=== PATIENT | female | born 1955 | race Caucasian/White ===

== ENCOUNTER 2024-08-12 07:58 | Outpatient (AMB) | payer OTHER, SELFPAY ==
--- OUTSIDE RECORDS SUMMARY | 2024-08-12 08:03 | XMS_ITS | Continuity of Care Document ---
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 She has a splint at home so volar splint is constructed in the cast room. She is provided an OT prescription to begin the rehab protocol. She will follow-up for this problem in 1 month for x-rays of the wrist and range of motion assessment. [email or web address] Not available 08/07/2024 10:59:47 Plan of Treatment Reminders Order Date Submit Date Provider Last Modified By Organization Details Last Modified Time Details Appointments RECHECK 15 2024 08:45A M Tiffany castañeda MD Not available Not available Not available Lab None recorde d. Referral occupat ional therapi st referra l - diagnos is: s/p left Distal radius fractur ecustom molded orthosi s: Possibl e custom molded volar wrist orthosi s if neededT reatmen t: AROM elbow, forearm , wrist and digits. May progres s to incorpo rate PROM and progres sive strengt hening after 6 weeks from injury/ surgery . 2024 025 [email or web address] Not available 08/07/2024 15:10:37 Procedures None recorde d. Surgeries None recorde d. Imaging XR, wrist, 3 or more view - CAST OFF FIRST post op visit 3 views left wrist rm 113 2024 025 [email or web address] [email or web address] [facility] Office, [address], [facility] [address], [place], [address], 08/07/2024 11:00:22 Medication Orders None recorde d. Patient TargetsNo targets recorded. Patient Instructions Encounter Date Encounter Id Patient Instructions Last Modified By Organization Details Last Modified Time 08/07/202420250225 cast removal* - cast off and xrays rm 113 left wrist everett 1 Not available 08/07/2024 11:00:22 application of splint, volar* - left removable volar splint rm 113 [email or web address] 1 Not available 08/07/2024 11:00:22 Reason for Referral Occupational Therapist Refer ral for Pain of left wrist diagnosis: s/p left Distal radius fracturecustom molded orthosis: Possible custom molded volar wrist orthosis if neededTreatment: AROM elbow, forearm, wrist and digits. May progress to incorporate PROM and progressive strengthening after 6 weeks from injury/surgery. Referring Physician: Tiffany Bateman, Orthopedic Surgery, Encounter Date: 08/07/2024 Results Created Date Observation Date Name Description Value Unit Range Abnormal Flag Note LastModifiedBy Organization Detail LastModifiedTime 07/13/20 24 07/13/2024 XR, wrist , 3 or more view [email or web address] ?Encry pted=s hAaTro YD8dLq bEUv6g %2BXZw aYqtaq 0bqfl% 2Fg9IQ a4ajBk vP9nXo QUaueC m3YtLR FvZlgJ JJ8mAn HZtai3 [id number] AC0Kqb niMV6C iKiQtr MwF INTERFACE [facility] [address] [facility] [address], [place], [address], 07/13/2024 12:14:18 07/13/20 24 07/13/2024 XR, wrist , 3 or more view [email or web address] ?Encry pted=s hAaTro YD8dLq bEUv6g %2BXZw aYqtaq 0bqfl% 2Fg9IQ a4ajBk vP9nXo QUaueC m3YtLR FvZlg [place] HZtai3 9t2584 AC0Kqb niMV6C iKiQtr MwF INTERFACE [facility] [address], [place], [address], 07/13/2024 12:14:21 08/07/19 25 08/07/2024 XR, wrist , 3 or more view [email or web address] ?Encry pted=s hAaTro YD8dLq bEUv6g %2BXZw aYqtaq 0bqfl% 2Fg9IQ a4ajBk vP9nXo QUaueC m3YtLR FvZl [facility] HZtai3 4i0686 AC0Kqb 3iGUKe hKiQtr MwF INTERFACE [facility] [address], [place], [address], 08/07/2024 10:08:50 08/07/19 25 08/07/2024 XR, wrist , 3 or more view [email or web address] ?Encry pted=s hAaTro YD8dLq bEUv6g %2BXZw aYqtaq 0bqfl% 2Fg9IQ a4ajBk vP9nXo QUaueC m3YtLR [facility] HZtai3 [id number] AC0Kqb 3iGUKe hKiQtr MwF INTERFACE [facility] [address], [place], [address], 08/07/2024 10:08:52 Result Notes None recorded. Problems Name Problem SNOMED Code Status Onset Date Resolution Date Notes Provider Name and Address Organization Details Recorded Time Pain in right hip joint 307211186185665 Active 2021 Status : 'A'; Not Available [facility] 4 11:44:05 Problem Notes None recorded. Procedures Surgical History Date Name Laterality Status Provider Name and Address Organization Details Recorded Time 4 OPEN REDUCTION INTERNAL FIXATION, DISTAL RADIUS (SURG) completed JUAN JOSÉ CHO [facility] 07/03/2024 12:39:33 4 Sports Knee 4&1 completed Santy Garcia MD [address] [facility] [address], [place], [address], [facility] 05/12/2024 11:01:09 Imaging Results None recorded. Procedure Notes None recorded. Medical Equipment None Reported. Allergies No known drug allergies Medications Name Sig Start Date Stop Date Status Note LastModified by Organization Details LastModified Time amoxicillin 500 mg capsule 4 pills 1 hour prior to procedure 05/12 completed Not Available Not Available Not Available alendronate 35 mg tablet Take 1 tablet every week by oral route. active Not Available Not Available No t Available levothyroxi ne 50 mcg tablet TAKE 1 TABLET BY MOUTH ONCE DAILY AND TAKE 2 TABS ON SUNDAYS active Not Available Not Available No t Available simvastatin 20 mg tablet TAKE 1 TABLET BY MOUTH NIGHTLY AT BEDTIME active Not Available Not Available No t Available clotrimazol e-betametha sone 1 %-0.05 % topical cream APPLY CREAM TOPICALLY ONCE OR TWICE DAILY TO AREA INVOLVED NEEDED FOR 2 WEEKS 06/29 completed Not Available Not Available Not Available sertraline 50 mg tablet TAKE 1 TABLET BY MOUTH ONCE DAILY active Not Available Not Available No t Available oxycodone 5 mg tablet Take 1 tablet every 6 hours by oral route as needed, for pain. active Not Available Not Available No t Available sertraline active Not Available Not Av ailable Not Available Vitamin C active Not Available Not Lisbeth ilable Not Available levothyroxi ne active Not Available Not Available Not Available simvastatin active Not Available Not A vailable Not Available Vitals Date Recorded Body height Body mass index (BMI) Body weight Provider Name and Address Organization Details Last Updated DateTime 08/07/2024 156.21 cm 26 kg/m2 89105.93 g Ani [place] [facility] 08/07/2024 09:59:39 Social History None recorded. Functional Status None recorded. Mental Status None recorded. Family History Nothing Reported. Medical History No medical history recorded. Gynecological HistoryNo gynecological history recorded. Obstetrics History GPAL:G 0 P 0 0 0 0 Past Encounters Encounter ID Performer Location Encounter Start Date Encounter Closed Date Diagnosis/Indication Diagnosis SNOMED-CT Code Diagnosis ICD10 Code Diagnosis Note [id number] ME[facility] [address] [place] [address] 07/13/2024 11:45:24 08/03/2024 16:03:37 Pain of left wrist 7594370007 82804 M25.270 [id number] MD KRISSY Teran [address] [place] [address] 08/07/2024 09:52:42 08/07/2024 11:00:22 Pain of left wrist 5244333184 70203 M25.532 Closed fra cture of distal end of radius 44786218 S52.572D Health Concerns Section Related Observation LastModified by Organization Detai ls LastModified Time None Recorded Concern Status LastModified by Organization Details LastModified Time None Recorded Payers Encounter Date Sequence Insurance Name Policy Number Policy Hayward Covered Member ID Hayward Member ID Guarantor Name 08/07/2024 1 [facility] (MEDICARE REPLACEMENT/A DVANTAGE - PPO) [id number] Karin Samuels [id number] Karin Samuels Notes Date Note Type Note Provider Name and Address Organization Details Recorded Time 08/07/2024 text/html DX: Status post open reduction and internal fixation Left distal radius fracture 07/02/2024 HPI: The patient is here for wound check and suture removal. The patient's pain is controlled. No numbness and tingling. No fevers or chills. The patient is taking vitamin C. patient is working on digital range of motion exercises. She has been in a cast since the most recent visit. Tiffany Bateman MD [address], [place], [address], [facility] 08/07/2024 11:00:19 OBGyn Episode No OBEpisode recorded.
--- NOTE | 2024-08-12 08:08 | A.OFFVIS_ITS ---
Vital Signs 08/12/24 08:12 Height 5 ft 1 in Weight 140 lb BMI 26.4 Intake Visit Reasons: Right knee pain and giving way Intake Note: Karin is a 68 year old female who presents with complaints of progressively worsening right knee pain and giving way. The patient describes her pain as sharp in nature. The patient states that she tripped and fell several months ago. She twisted her right knee at that time. She also suffered a left wrist fracture. She is currently healing after undergoing left wrist fracture surgery in [place]. Most of her knee pain is along the medial aspect of her knee. She has had a cortisone injection in the past which gave her no relief. She has also tried physical therapy exercises which aggravated her pain. She has failed the last 6 weeks of conservative treatment which has included Tylenol, anti- inflammatory medicines and physical therapy exercises. She states that her right knee will give out several times per day. Allergies No Known Allergies Allergy (Verified 08/12/24 08:13) Medication List - Last Reconciled 08/12/24 by Kenneth Lai MD alendronate 35 mg PO QWEEK levothyroxine mcg PO sertraline 50 mg PO DAILY simvastatin 20 mg PO BEDTIME [facility] Social History (Updated 08/12/24 @ 08:14 by CARLA Kaplan) Current occupational status: retired Current occupation: rt handed Physical Exam Vital Signs: BMI result Body Mass Index 26.4 Const Other: Well-nourished well-developed very friendly female awake alert and oriented x3 in no acute distress Extrem Other: Bilateral lower extremity examination shows good capillary refill, no skin lesions noted, normal sensation light touch Right knee examination shows a minimal effusion, minimal crepitus with range of motion, tenderness along her medial joint line, positive Janelle's test, no instability Results Reviewed Results Reviewed: Standing full weight-bearing x-rays of the patient's right knee show mild diffuse joint space narrowing, no acute bony abnormalities Assessment & Plan Assessment & Plan (1) Tear of medial meniscus of right knee: Code(s): S83.241A - Other tear of medial meniscus, current injury, right knee, initial encounter Category: Medical Plan Ms. Samuels presents with progressively worsening right knee pain and mechanical symptoms most likely due to a tear of her medial meniscus. Thus, I will send the patient for an MRI of her right knee for further evaluation. I will see her back once the MRI is completed to discuss the findings and treatment options. Feel free to call me at any time should questions regarding her orthopedic management arise. Thank you very much for asking me to see this very friendly patient. I spent 22 minutes in reviewing the patient's records and imaging studies, seeing the patient and documenting in the medical record. Orders: Orders XR knee RT 3V Today M25.561 - Pain in right knee Coding Level of Care Code New Pt Level 3 (18838) Complex EM visit Add On G2211 Diagnoses Tear of medial meniscus of right knee S83.241A
[2024-08-12 08:12] VITALS: BMI 26.4
== END 2024-08-12 08:22 | disposition home or self-care (01) ==
PROVIDERS: PCP Internal Medicine; Visit Provider Orthopaedic Surgery
DX: S83.241A Other tear of medial meniscus, current injury, right knee, initial encounter (principal)
CPT/HCPCS: 99203

== ENCOUNTER 2024-08-12 15:22 | Outpatient (REF) | payer MEDICARE, SELFPAY ==
--- NOTE | ~2024-08-12 | XR_ITS ---
CLINICAL HISTORY: M25.561 - Pain in right knee Right knee three views Comparison: None Findings: Severe medial compartment narrowing with mild hypertrophic changes. Mild degenerative changes in the lateral and patellofemoral compartments. No fracture or dislocation. Loss of the normal valgus angulation with Horacio in mild varus. Soft tissues intact. No joint effusion. 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 This document has been electronically signed by: Sohail Simms MD on 08/14/2024 04:59:36
--- OUTSIDE RECORDS SUMMARY | 2024-08-13 18:26 | XMS_ITS | Continuity of Care Document ---
Author Organization [place] - [facility], KRISSY [address] 1[address] Floor Address [address] [place] [address] Care Team Providers Care Mechanical Technical Service Specialist Name Role Phone CRISTAL CASTELAN Primary Care Provider [phone] Assessment Encounter Date Assessment Date Assessment LastModified [...] wrist rm 113 2024 025 kelsi [email or web address] [facility] Office, [address], [facility] [address], [place], [address], 08/07/2024 11:00:22 Medication Orders None recorde d. [...] a4ajBk vP9nXo QUaueC m3YtLR FvZlgJ JJ8mAn HZtai3 [id number] AC0Kqb niMV6C iKiQtr MwF INTERFACE [facility] Office [address] [facility] [address], [place], [address], 07/13/2024 12:14:18 07/13/20 24 07/13/2024 XR, wrist , 3 or more view [email or web address] ?Encry pted=s hAaTro YD8dLq bEUv6g %2BXZw aYqtaq 0bqfl% 2Fg9IQ a4ajBk vP9nXo QUaueC m3YtLR FvZlg J8[place] HZtai3 9w3921 AC0Kqb niMV6C iKiQtr MwF INTERFACE [facility] [address], [place], [address], 07/13/2024 12:14:21 08/07/19 25 08/07/2024 XR, wrist , 3 or more view [email or web address] ?Encry pted=s hAaTro YD8dLq bEUv6g %2BXZw aYqtaq 0bqfl% 2Fg9IQ a4ajBk vP9nXo QUaueC m3YtLR FvZl J8[facility] HZtai3 8v5871 AC0Kqb 3iGUKe hKiQtr MwF INTERFACE [facility] [address], [place], [address], 08/07/2024 10:08:50 08/07/19 25 08/07/2024 XR, wrist , 3 or more view [email or web address] ?Encry pted=s hAaTro YD8dLq bEUv6g %2BXZw aYqtaq 0bqfl% 2Fg9IQ a4ajBk vP9nXo QUaueC m3YtLR [facility]8[place] HZtai3 [id number] AC0Kqb 3iGUKe hKiQtr MwF INTERFACE [facility] [address] [facility] [address], [place], [address], 08/07/2024 10:08:52 Result Notes None recorded. Problems Name Problem SNOMED Code Status Onset Date Resolution Date Notes Provider Name and Address Organization Details Recorded Time Pain in right hip joint 351287012884856 Active 2021 Status : 'A'; Not Available [facility] 4 11:44:05 Problem Notes None recorded. Procedures Surgical History Date Name Laterality Status Provider Name and Address Organization Details Recorded Time 4 OPEN REDUCTION INTERNAL FIXATION, DISTAL RADIUS (SURG) completed JUAN JOSÉ CHO [facility] 07/03/2024 12:39:33 4 Sports Knee 4&1 completed Santy Garcia MD [address] [facility] [address], [place], [address], [facility] 05/12/2024 11:01:09 Imaging Results None recorded. [...] Updated DateTime 08/07/2024 156.21 cm 26 kg/m2 19060.93 g Ani [place] [facility] 08/07/2024 09:59:39 Social History None recorded. Functional Status None recorded. Mental Status None recorded. Family History Nothing Reported. Medical History No medical history recorded. Gynecological HistoryNo gynecological history recorded. Obstetrics History GPAL:G 0 P 0 0 0 0 Past Encounters Encounter ID Performer Location Encounter Start Date Encounter Closed Date Diagnosis/Indication Diagnosis SNOMED-CT Code Diagnosis ICD10 Code Diagnosis Note [id number] [facility] [address] [place] [address] 07/13/2024 11:45:24 08/03/2024 16:03:37 Pain of left wrist [id number] 97817 M25.068 [id number] MD KRISSY Teran 1[address] [place] [address] 08/07/2024 09:52:42 08/07/2024 11:00:22 Pain of left wrist 2041960208 21253 M25.532 Closed fra cture of distal end of radius 03979244 S52.572D Health Concerns Section Related Observation LastModified by Organization Detai ls LastModified Time None Recorded Concern Status LastModified by Organization Details LastModified Time None Recorded Payers Encounter Date Sequence Insurance Name Policy Number Policy Hayward Covered Member ID Hayward Member ID Guarantor Name 08/07/2024 1 [facility] (MEDICARE REPLACEMENT/A DVANTAGE - PPO) [id number] Karin Samuels [id number] Karin Samuels Notes Date Note Type Note [...] Bateman MD [address], [place], [address], [facility] 08/07/2024 11:00:19 OBGyn Episode No OBEpisode recorded.
== END 2024-08-12 15:23 | disposition home or self-care (01) ==
LOC: HO.HOSX 15:22
PROVIDERS: Visit Provider Orthopaedic Surgery
DX: M25.561 Pain in right knee (principal)
CPT/HCPCS: 73562; 99202

== ENCOUNTER 2024-08-22 10:00 | Outpatient (REF) | payer MEDICARE, SELFPAY ==
--- NOTE | ~2024-08-22 | MR_ITS ---
EXAMINATION: MRI RIGHT KNEE WITHOUT CONTRAST HISTORY: S83.241A - Other tear of medial meniscus, current injury, right knee COMPARISON: Correlation is made to plain films of the right knee dated 08/12/2024. TECHNIQUE: Coronal T1 and fat-suppressed proton density, sagittal proton density and fat-suppressed proton density, and axial fat suppressed T2 weighted MR images of the right knee were obtained. FINDINGS: Bone marrow: Bone marrow signal intensity is normal. Joint effusion: There is a small suprapatellar joint effusion. Ireland's cyst: There is no Ireland's cyst. Articular cartilage: There is moderate osteoarthritis of the medial and patellofemoral compartments with cartilage loss and osteophyte formation. Muscles: There is a 2.3 x 0.7 x 2.3 cm cystic focus in the popliteus muscle suggestive of a ganglion cyst. Anterior cruciate ligament: Intact Posterior cruciate ligament: Intact Medial collateral ligament: Intact Lateral collateral ligament: Intact Medial meniscus: There is a horizontally oriented linear focus of increased T2 signal intensity within the posterior horn of the medial meniscus. This contacts the inferior surface, consistent with a tear. Anterior horn of the medial meniscus is intact. Lateral meniscus: Intact Popliteus tendon: Intact Quadriceps tendon: Intact Patellar tendon: Intact Patellar retinacula: Intact MR/MR knee RT wo con IMPRESSION: 1. Moderate osteoarthritis of the medial and patellofemoral compartments. 2. Horizontal tear of the posterior horn of the medial meniscus. This may be degenerative in nature. 3. Probable 2.3 x 0.7 x 2.3 cm ganglion cyst of the popliteus muscle. Electronically signed by: Zaki Cerrato MD 08/24/2024 08:21 AM [facility]
--- OUTSIDE RECORDS SUMMARY | 2024-08-22 10:05 | XMS_ITS | Data Portability ---
Author Organization [place] - [facility], [facility] Address [address] [place] [address] Care Team Providers Care Geomorphology Teacher Name Role Phone CRISTAL CASTELAN Primary Care Provider Assessment Encounter Date Assessment Date Assessment LastModified by Organization Details LastModified Time 05/12/2024 05/12/2024 Chief complaint: Right knee pain. History of present illness: The patient is a 68-year-old female presenting with a chief complaint of right knee pain. She has had pain for 2 months. The patient currently has 7 out of 10 pain. Currently the patient uses no assistive devices when walking. The patient has tried rest and activity modification but continues to have pain. Past medical history: Past medical history reviewed from the patient's intake sheet. Pertinent positives: none Past surgical history: Past surgical history reviewed from the patient's intake sheet. Pertinent positives: right total hip arthroplasty Allergies: Allergies reviewed from the patient's intake sheet. Pertinent positives: none Medications: Medications reviewed from the patient's intake sheet. Pertinent positives: none Social history: Social history reviewed from the patient's intake sheet. Pertinent positives: none Physical Examination: The patient is in no acute distress. She is alert and oriented x3. She has nonlabored breathing. Her hearing is intact to spoken word. Her extra-ocular motion is intact. Her BMI is 26. Right lower extremity - Alignment: neutral Effusion: mild Knee range of motion: Negative 10-120 Varus/valgus stress testing: moderate laxity Crepitus: slight Skin is intact without erythema, induration, or ecchymosis. The patient has full painless range of motion at the ipsilateral hip. Sensation is intact to light touch over the dorsum of the foot, in the first webspace, and over the plantar aspect of the foot. The patient has 5/5 strength with plantarflexion of the ankle, dorsiflexion of the ankle, plantarflexion of the great toe, and dorsiflexion of the great toe. The foot is warm and well-perfused with brisk capillary refill. There is a 2+ dorsalis pedis pulse. Radiographs: 4 views of the right knee including bilateral knee AP, bilateral knee Sandoval, right knee lateral, and bilateral knee merchant views were obtained and evaluated in the office today. X-rays demonstrate that the patient has mild osteoarthritis of the right knee with some subchondral sclerosis and osteophyte formation in the medial compartment but without significant joint space narrowing. There is no evidence of fracture. Injection: The patient was given a corticosteroid injection in the office today for treatment of right knee pain. Risks of the injection, including but not limited to infection were discussed. Despite the risks, the patient wished to proceed. The patient had an injection containing 4 cc of 1% lidocaine and 1 cc of Kenalog injected into the right knee via an anterolateral approach under sterile technique. The patient tolerated this injection well. There were no complications. Following the injection the patient noted a decrease in pain. The patient was instructed to contact the office if the patient had any reaction at the injection site or any concerns. The patient was also instructed to keep track of how much pain relief the injection provided and how long the injection was effective. Assessment and plan: The patient is a 68-year-old female presenting with a chief complaint of right knee pain. She demonstrates mild osteoarthritis of the right knee on her radiographs. She was given a corticosteroid injection in the office today. She can follow up with me as-needed for her right knee pain. carol Not available 05/12/2024 11:02:58 06/29/2024 06/29/2024 I am seeing the patient today under the supervision of Dr. Bateman who was available but who did not see the patient. HPI: 68-year-old female presents today after a fall. She is [place] cruise ship fell onto her left nondominant hand and wrist. Full pain, swelling, deformity. Had a splint applied and was referred for further evaluation and treatment. Past family, medical, social history and review of systems has been reviewed, updated and is located in the patient? s chart. Examination: the patient is alert and cooperative in no acute distress. Afebrile, vital signs stable. There is poorly applied splint noted. Digits encapsulated in the splint. This was removed. There is full digital motion. There is ecchymosis about the hand and wrist. There is limited range of motion due to pain. Circulation and sensation intact. X-rays ordered, obtained and reviewed at [facility] 3 views of the left wrist ordered and interpreted today demonstrate a displaced intra-articular fracture of the left distal radius. There is shortening. There is a split fragment extending into the articular surface. Impression: Displaced left distal radius fracture Plan:. I recommended and we will arrange for ORIF. Patient placed in a new sugar tong splint. The interim. Not available 06/29/2024 09:59:22 08/07/2024 08/07/2024 Assessment: Status post ORIF left [...] Organization Details Last Modified Time Details Appointments RECHEC K 15 2024 08:45A M Tiffany castañeda MD Not available Not available Not available Lab None record ed. Referral occupa tional therap ist referr al - diagno sis: s/p left Distal radius fractu recust om molded orthos is: Possib le custom molded volar wrist orthos is if needed Treatm ent: AROM elbow, forear m, wrist and digits . May progre ss to incorp orate PROM and progre ssive streng thenin g after 6 weeks from injury /surge ry. 2024 025 [email or web address] Not available 08/20/2024 14:08:10 Procedures None record ed. Surgeries None record ed. Imaging XR, knee, 4 or more view - 205 rt 4v 2023 024 [email or web address] [facility], [address], [place], [address], 06/02/2024 15:15:46 XR, wrist, 3 or more view - RM 120 3V IN SPLINT 2023 024 [email or web address] [facility], [address], [address], [place], [address], 06/29/2024 11:46:09 XR, wrist, 3 or more view - post op visit 3 views left wrist rm 4 2023 024 [email or web address] [facility], [address], [place], [address], 07/13/2024 14:15:13 XR, wrist, 3 or more view - CAST OFF FIRST post op visit 3 views left wrist rm 113 2024 025 [email or web address] [facility], [address], [place], [address], 08/20/2024 14:08:10 Medication Orders None record ed. Patient TargetsNo targets recorded. Patient Instructions Encounter Date Encounter Id Patient Instructions Last Modified By Organization Details Last Modified Time 06/29/[id number] application of splint, short arm* - RM 120 SUGAR TONG SPLINT REMOVBLE Not available 06/29/2024 11:46:09 07/13/[id number] application of cast, short arm cast* - left short arm cast rm 4 [email or web address] Not available 07/13/2024 12:41:33 08/07/2024 [id number] cast removal* - cast off and xrays rm 113 left wrist [email or web address] Not available 08/07/2024 11:00:22 application of splint, volar* - left removable volar splint rm 113 [email or web address] 1 Not available 08/07/2024 11:00:22 Reason for [...] Abnormal Flag Note LastModifiedBy Organization Detail LastModifiedTime 05/12/20 24 05/12/2024 XR, knee, 4 or more view [email or web address] ?Encry pted=s hAaTro YD8dLq bEUv6g %2BXZw aYqtaq 0bqfl% 2Fg9IQ a4ajBk vP9nXo QUaueC m3YtLR FvZl JJ8mAn HZtai3 2f8818 AC0Kqa 3SBVKa kKiQtr MwF INTERFACE [facility] [address], [place], [address], 05/12/2024 10:20:46 05/12/20 24 05/12/2024 XR, knee, 4 or more view [email or web address] ?Encry pted=s hAaTro YD8dLq bEUv6g %2BXZw aYqtaq 0bqfl% 2Fg9IQ a4ajBk vP9nXo QUaueC m3YtLR Zl [facility] 7h8437 AC0Kqa 3SBVKa kKiQtr MwF INTERFACE [facility] [address], [place], [address], 05/12/2024 10:20:48 06/29/20 24 06/29/2024 XR, wrist , 3 or more view [email or web address]:/ [email or web address] ?Encry pted=s hAaTro YD8dLq bEUv6g %2BXZw aYqtaq 0bqfl% 2Fg9IQ a4ajBk vP9nXo QUaueC m3YtLR FvZl JJ8mAn HZtai3 3q7406 AC0Kqa XSGUqa iKiQtr MwF INTERFACE [facility] [address], [place], [address], 06/29/2024 09:22:15 06/29/20 24 06/29/2024 XR, wrist , 3 or more view [email or web address]:/ [email or web address] ?Encry pted=s hAaTro YD8dLq bEUv6g %2BXZw aYqtaq 0bqfl% 2Fg9IQ a4ajBk vP9nXo QUaueC m3YtLR FvZl JJ8Porter HZtai3 4g1771 AC0Kqa XSGUqa iKiQtr MwF INTERFACE [facility] [address] [facility] [address], [place], [address], 06/29/2024 09:22:17 07/13/20 24 07/13/2024 XR, wrist , 3 or more view [email or web address]:/ [email or web address] ?Encry pted=s hAaTro YD8dLq bEUv6g %2BXZw aYqtaq 0bqfl% 2Fg9IQ a4ajBk vP9nXo QUaueC m3YtLR FvZl JJ8mAn HZtai3 8f9277 AC0Kqb niMV6C iKiQtr MwF INTERFACE [facility] [address] [facility] [address], [place], [address], 07/13/2024 12:14:18 07/13/20 24 07/13/2024 XR, wrist , 3 or more view [email or web address]:/ [email or web address] ?Encry pted=s hAaTro YD8dLq bEUv6g %2BXZw aYqtaq 0bqfl% 2Fg9IQ a4ajBk vP9nXo QUaueC m3YtLR FvZlJ JJ8mAn HZtai3 0b7221 AC0Kqb niMV6C iKiQtr MwF INTERFACE [facility] [address], [place], [address], 07/13/2024 12:14:21 08/07/19 25 08/07/2024 XR, wrist , 3 or more view [email or web address]:/ [email or web address] ?Encry pted=s hAaTro YD8dLq bEUv6g %2BXZw aYqtaq 0bqfl% 2Fg9IQ a4ajBk vP9nXo QUaueC m3YtLR FvZlgJ JJ8mAn HZtai3 0v0862 AC0Kqb 3iGUKe hKiQtr MwF INTERFACE [facility] [address], [place], [address], 08/07/2024 10:08:50 08/07/19 25 08/07/2024 XR, wrist , 3 or more view [email or web address] ?Encry pted=s hAaTro YD8dLq bEUv6g %2BXZw aYqtaq 0bqfl% 2Fg9IQ a4ajBk vP9nXo QUaueC m3YtLR FvZlgJ JJ8mAn HZtai3 5e7520 AC0Kqb 3iGUKe hKiQtr MwF INTERFACE [facility] [address], [place], [address], 08/07/2024 10:08:52 Result Notes None recorded. Problems Name Problem SNOMED Code Status Onset Date Resolution Date Notes Provider Name and Address Organization Details Recorded Time Pain in right hip joint 298684205422200 Active 2021 Status : 'A'; Not Available [facility] 11:[facility]05 Problem Notes None recorded. Procedures Surgical History Date Name Laterality Status Provider Name and Address Organization Details Recorded Time 4 OPEN REDUCTION INTERNAL FIXATION, DISTAL RADIUS (SURG) completed JUAN JOSÉ CHO [place] - [facility] 07/03/2024 12:39:33 4 Sports Knee 4&1 completed Santy Garcia MD [address], [place], [address], [facility] - [facility] 05/12/2024 11:01:09 Imaging Results Imaging Date Name Status LastModified by Organiz ation Details LastModified Time 05/12/2024 XR, knee, 4 or more view completed INTERFACE [facility] [address], [place], [address], 05/12/2024 10:20:46 05/12/2024 XR, knee, 4 or more view completed INTER[facility] [address], [place], [address], 05/12/2024 10:20:48 06/29/2024 XR, wrist, 3 or more view completed INTERFACE [facility] [address], [place], [address], 06/29/2024 09:22:15 06/29/2024 XR, wrist, 3 or more view completed [facility] [address], [place], [address], 06/29/2024 09:22:17 07/13/2024 XR, wrist, 3 or more view completed INTERFACE [facility] [address], [place], [address], 07/13/2024 12:14:18 07/13/2024 XR, wrist, 3 or more view completed INTERFACE [facility] [address], [place], [address], 07/13/2024 12:14:21 08/07/2024 XR, wrist, 3 or more view completed INTERFACE [facility] [address], [place], [address], 08/07/2024 10:08:50 08/07/2024 XR, wrist, 3 or more view completed INTERFACE [facility] [address], [place], [address], 08/07/2024 10:08:52 Procedure Notes None recorded. Medical Equipment None [...] Not Available Vitals Date Recorded Body height Provider Name an d Address Organization Details Last Updated DateTime 05/12/2024 156.21 cm JUDY Moreno [facility] 05/12/2024 10:04:47 Date Recorded Body mass index (BMI) Body weight Provider Name and Address Organization Details Last Updated DateTime 05/12/2024 26 kg/m2 96551.93 g JUDY Moreno [facility] 05/12/2024 10:04:50 Date Recorded Body height Provider Name an d Address Organization Details Last Updated DateTime 06/29/2024 156.21 cm ZAKIYA Moreno [facility] 06/29/2024 09:13:19 Date Recorded Body mass index (BMI) Body weight Provider Name and Address Organization Details Last Updated DateTime 06/29/2024 26 kg/m2 06302.93 g ZAKIYA Nguyen [facility] 06/29/2024 09:13:24 Date Recorded Body height Provider Name an d Address Organization Details Last Updated DateTime 07/13/2024 156.21 cm Ani [facility] 07/13/2024 12:19:57 Date Recorded Body mass index (BMI) Body weight Provider Name and Address Organization Details Last Updated DateTime 07/13/2024 26 kg/m2 26880.93 g Ani [facility] 07/13/2024 12:20:02 Date Recorded Body height Provider Name an d Address Organization Details Last Updated DateTime 08/07/2024 156.21 cm Ani [facility] 08/07/2024 09:59:31 Date Recorded Body mass index (BMI) Body weight Provider Name and Address Organization Details Last Updated DateTime 08/07/2024 26 kg/m2 97133.93 g Ani [facility] 08/07/2024 09:59:39 Social History None recorded. Functional Status None recorded. Mental Status None recorded. Family History Nothing Reported. Medical History No medical history recorded. Gynecological HistoryNo gynecological history recorded. Obstetrics History GPAL:G 0 P 0 0 0 0 Past Encounters Encounter ID Performer Location Encounter Start Date Encounter Closed Date Diagnosis/Indication Diagnosis SNOMED-CT Code Diagnosis ICD10 Code Diagnosis Note [id number] MD Priyanka Sutton [address] [place] [address] 05/12/2024 09:46:21 06/02/2024 15:15:46 Pain of right knee joint 7115349463 71013 M25.561 Osteoarthr itis of right knee joint 6902879214 40043 M17.11 [id number] MELLY Chand [address] [place] [address] 06/29/2024 09:01:42 07/17/2024 10:36:02 Pain of left wrist 2471721934 17615 M25.532 Closed fra cture of distal end of radius 99417446 S52.572A [id number] MELLY [facility] [address] [place] [address] 07/13/2024 11:45:24 08/03/2024 16:03:37 Pain of left wrist 4441526478 71650 M25.554 [id number] MD KRISSY Teran [address] [place] [address] 08/07/2024 09:52:42 08/20/2024 14:08:10 Pain of left wrist 3024446356 12186 M25.532 Closed fra cture of distal end of radius 37461380 S52.572D Health Concerns Section Related Observation LastModified by Organization Detai ls LastModified Time None Recorded Concern Status LastModified by Organization Details LastModified Time None Recorded Advance Directives Directive None Recorded Payers Encounter Date Sequence Insurance Name Policy Number Policy Hayward Covered Member ID Hayward Member ID Guarantor Name 05/12/2024 1 [facility] (MEDICARE REPLACEMENT/A DVANTAGE - PPO) [id number] Karin J Samuels [id number] Karin J Samuels 06/29/2024 1 [facility] (MEDICARE REPLACEMENT/A DVANTAGE - PPO) [id number] Karin J Samuels [id number] Karin J Samuels 07/13/2024 1 [facility] (MEDICARE REPLACEMENT/A DVANTAGE - PPO) [id number] Karin J Samuels [id number] Karin J Samuels 08/07/2024 1 [facility] (MEDICARE REPLACEMENT/A DVANTAGE - PPO) [id number] Karin J Samuels [id number] Karin J Samuels Notes Date Note Type Note Provider Name and Address Organization Details Recorded Time 07/13/2024 text/html I am seeing the patient today under the supervision of dr bateman who was available but who did not see the patient. DX: Status post open reduction and internal fixation Left distal radius fracture 07/02/2024 HPI: The patient is here for wound check and suture removal. The patient's pain is controlled. No numbness and tingling. No fevers or chills. The patient is taking vitamin C. patient is working on digital range of motion exercises. Past family, medical, social history and review of systems has been reviewed, updated and is located in the patient? s chart. Examination:No acute distress. Non-antalgic gait. Vital signs per nursing intake sheet. Physical examination of the left wrist reveals swelling. There is also swelling of the hand and digits. Volar incision is healed. Subcuticular tail excised. Limited wrist and digital range of motion. Sensation intact all nerve distribution. 1+ capillary refill, 2+ radial pulse. X-rays ordered, obtained and reviewed at [facility] 3 views of the left wrist reveal a plate overlying the distal radius fracture. distal radius fracture is aligned. No backing hardware. Impression/plan: The findings and situation discussed with the patient. She was placed in a short arm cast. She will elevate and ice. She will work on digital range of motion exercises. She will follow-up with Dr. Hurtado in 2 to 3 weeks for cast removal and 2 views of the left wrist Josh Boudreaux PA-C [address] [facility] [address], [place], [address], [facility] 07/13/2024 12:22:25 08/07/2024 text/html DX: Status post open reduction [...] most recent visit. Tiffany Bateman MD [address] [facility] [address], [place], [address], [facility] 08/07/2024 11:00:19 OBGyn Episode No OBEpisode recorded.
== END 2024-08-22 10:01 | disposition home or self-care (01) ==
LOC: HO.MRI 10:00
PROVIDERS: PCP Internal Medicine; Visit Provider Orthopaedic Surgery
DX: S83.241A Other tear of medial meniscus, current injury, right knee, initial encounter (principal)
CPT/HCPCS: 73721

== ENCOUNTER → 2024-08-22 10:07 | Outpatient (BNV) | payer MEDICARE, SELFPAY | PROVIDERS: PCP Internal Medicine; Visit Provider Radiology Diagnostic Radiology | DX: S83.241A Other tear of medial meniscus, current injury, right knee, initial encounter (principal) | CPT/HCPCS: 73721 ==

== ENCOUNTER 2024-09-01 08:39 | Outpatient (AMB) | payer MEDICARE, SELFPAY ==
[2024-09-01 08:44] VITALS: BMI 26.4
--- NOTE | 2024-09-01 08:44 | MHC.OFFVIS ---
Vital Signs 09/01/24 08:44 Height 5 ft 1 in Weight 140 lb BMI 26.4 Intake Visit Reasons: OV- Right knee MRI review Intake Note: Karin is a 68 year old female who presents today for a right knee MRI review. The patient states that her right knee discomfort has improved somewhat since her last visit. She denies any locking or giving way. She is due to start hand therapy after suffering a left wrist fracture. Allergies No Known Allergies Allergy (Verified 09/01/24 08:46) Medication List - Last Reconciled 09/01/24 by Kenneth Lai MD alendronate 35 mg PO QWEEK levothyroxine mcg PO sertraline 50 mg PO DAILY simvastatin 20 mg PO BEDTIME PFS Social History (Updated 08/12/24 @ 08:14 by CARLA Kaplan) Current occupational status: retired Current occupation: rt handed Physical Exam Vital Signs: BMI result Body Mass Index 26.4 Const Other: Well-nourished well-developed very friendly female awake alert and oriented x3 in no acute distress Extrem Other: Bilateral lower extremity examination shows good capillary refill, no skin lesions noted, normal sensation light touch Right knee examination shows a minimal effusion, minimal crepitus with range of motion, positive Janelle's test, tenderness along her medial joint line, no instability Results Reviewed Results Reviewed: MRI of the patient's right knee shows mild diffuse degenerative changes as well as a tear of the medial meniscus Assessment & Plan Assessment & Plan (1) Tear of medial meniscus of right knee: Code(s): S83.241A - Other tear of medial meniscus, current injury, right knee, initial encounter Category: Medical Plan Ms. Samuels presents with intermittent right knee discomfort due to a medial meniscus tear. I had a lengthy discussion with the patient regarding the treatment options. At this point the patient's symptoms are tolerable to her. She will continue with her activity modifications. She will follow up with me on an as-needed basis should her symptoms worsen in any way. Feel free to call me at any time should questions regarding her orthopedic management arise. I spent 20 minutes in reviewing the patient's records and imaging studies, seeing the patient and documenting in the medical record. Coding Level of Care Code Est Pt Level 3 (65518) Complex EM visit Add On G2211 Diagnoses Tear of medial meniscus of right knee S83.241A
--- OUTSIDE RECORDS SUMMARY | 2024-09-01 08:57 | XMS_ITS | Continuity of Care Document ---
Author Organization [place] [facility] 1st Floor Address [address] [place] [address] Care Team Providers Care Oil House Attendant Name Role Phone CRISTAL CASTELAN Primary Care [...] ed. Surgeries None record ed. Imaging XR, wrist, 3 or more view - CAST OFF FIRST post op visit 3 views left wrist rm 113 2024 025 rmessenger [facility] Office, [address], [place], [address], 08/20/2024 14:08:10 Medication Orders None record ed. Patient TargetsNo targets recorded. Patient Instructions Encounter Date Encounter Id Patient Instructions Last Modified By Organization Details Last Modified Time 08/07/202420250225 cast removal* - cast off and xrays rm 113 left wrist [email or web address] 1 Not available 08/07/2024 11:00:22 application of [...] , 3 or more view [email or web address] ?Encry pted=s hAaTro YD8dLq bEUv6g %2BXZw aYqtaq 0bqfl% 2Fg9IQ a4ajBk vP9nXo QUaueC m3YtLR FvZlgJ JJ8mAn HZtai3 8x7303 AC0Kqb niMV6C iKiQtr MwF INTERFACE [facility] Office [address], [place], [address], 07/13/2024 12:14:18 07/13/20 24 07/13/2024 XR, wrist , 3 or more view [email or web address]:/ [email or web address] ?Encry pted=s hAaTro YD8dLq bEUv6g %2BXZw aYqtaq 0bqfl% 2Fg9IQ a4ajBk vP9nXo QUaueC m3YtLR FvZlgJ JJ8mAn HZtai3 4p0920 AC0Kqb niMV6C iKiQtr MwF INTERFACE [facility] [address], [place], [address], 07/13/2024 12:14:21 08/07/19 25 08/07/2024 XR, wrist , 3 or more view [email or web address] ?Encry pted=s hAaTro YD8dLq bEUv6g %2BXZw aYqtaq 0bqfl% 2Fg9IQ a4ajBk vP9nXo QUaueC m3YtLR FvZlgJ JJ8mAn HZtai3 7z2278 AC0Kqb 3iGUKe hKiQtr MwF INTERFACE [facility] [address], [place], [address], 08/07/2024 10:08:50 08/07/19 25 08/07/2024 XR, wrist , 3 or more view [email or web address] ?Encry pted=s Briceo YD8dLq bEUv6g %2BXZw aYqtaq 0bqfl% 2Fg9IQ a4ajBk vP9nXo QUaueC m3YtLR FvZlg JJ8mAn HZtai3 3i5788 AC0Kqb 3iGUKe hKiQtr MwF INTERFACE [facility] [address], [place], [address], 08/07/2024 10:08:52 Result Notes None recorded. Problems Name Problem SNOMED Code Status Onset Date Resolution Date Notes Provider Name and Address Organization Details Recorded Time Pain in right hip joint 635139137638208 Active 2021 Status : 'A'; Not Available [facility] 4 11:44:05 Problem Notes None recorded. Procedures Surgical History Date Name Laterality Status Provider Name and Address Organization Details Recorded Time 4 OPEN REDUCTION INTERNAL FIXATION, DISTAL RADIUS (SURG) completed JUAN JOSÉ CHO [facility] 07/03/2024 12:39:33 4 Sports Knee 4&1 completed Santy Garcia MD [address] [facility] [address], [place], [address], [facility] 05/12/2024 11:01:09 Imaging Results None recorded. [...] Updated DateTime 08/07/2024 156.21 cm 26 kg/m2 71296.93 g Ani [facility] 08/07/2024 09:59:39 Social History None recorded. Functional Status None recorded. Mental Status None recorded. Family History Nothing Reported. Medical History No medical history recorded. Gynecological HistoryNo gynecological history recorded. Obstetrics History GPAL:G 0 P 0 0 0 0 Past Encounters Encounter ID Performer Location Encounter Start Date Encounter Closed Date Diagnosis/Indication Diagnosis SNOMED-CT Code Diagnosis ICD10 Code Diagnosis Note [id number] [facility] [address] [place] [address] 07/13/2024 11:45:24 08/03/2024 16:03:37 Pain of left wrist 5298741995 52163 M25.894 [id number] MD KRIS[facility] [address] [place] [address] 08/07/2024 09:52:42 08/20/2024 14:08:10 Pain of left wrist 8965591929 38744 M25.532 Closed fra cture of distal end of radius 40712054 S52.572D Health Concerns Section Related Observation LastModified by Organization Detai ls LastModified Time None Recorded Concern Status LastModified by Organization Details LastModified Time None Recorded Payers Encounter Date Sequence Insurance Name Policy Number Policy Hayward Covered Member ID Hayward Member ID Guarantor Name 08/07/2024 1 [facility] (MEDICARE REPLACEMENT/A DVANTAGE - PPO) [id number] Karin Samuels [id number] Karin Samuels Notes Date Note Type Note [...] Bateman MD [address], [place], [address], [facility] 08/07/2024 11:00:19 OBGyn Episode No OBEpisode recorded.
== END 2024-09-01 08:59 | disposition home or self-care (01) ==
PROVIDERS: PCP Internal Medicine; Visit Provider Orthopaedic Surgery
DX: S83.241A Other tear of medial meniscus, current injury, right knee, initial encounter (principal)
CPT/HCPCS: 99213

== ENCOUNTER → 2024-09-01 08:39 | Outpatient (BNVA) | payer MEDICARE, SELFPAY | PROVIDERS: PCP Internal Medicine; Visit Provider Orthopaedic Surgery | DX: S83.241A Other tear of medial meniscus, current injury, right knee, initial encounter (principal); X58.XXXA Exposure to other specified factors, initial encounter; Y93.9 Activity, unspecified; Y92.9 Unspecified place or not applicable; Y99.9 Unspecified external cause status | CPT/HCPCS: 99212 ==

== ENCOUNTER 2025-03-23 11:02 | Outpatient (AMB) | payer MEDICARE, SELFPAY ==
--- NOTE | 2025-03-23 11:26 | MHC.OFFVIS ---
Vital Signs 03/23/25 11:30 Height 5 ft 1 in Weight 140 lb BMI 26.4 Intake Visit Reasons: OV- Right knee Pain Follow up Intake Note: Karin is a 89 year old female who presents with complaints of progressively worsening right knee pain and giving way. The patient describes her pain as sharp in nature. The patient states that she tripped and fell several months ago. She twisted her right knee at that time. Most of her knee pain is along the medial aspect of her knee. She has had a cortisone injection in the past which gave her no relief. She has also tried physical therapy exercises which aggravated her pain. She has failed the last 6 weeks of conservative treatment which has included Tylenol, anti-inflammatory medicines and physical therapy exercises. She states that her right knee will give out several times per day. Allergies No Known Allergies Allergy (Verified 03/23/25 11:31) Medication List - Last Reconciled 03/23/25 by Kenneth Lai MD alendronate 35 mg PO QWEEK levothyroxine mcg PO sertraline 50 mg PO DAILY simvastatin 20 mg PO BEDTIME [facility] Social History Current occupational status: retired Current occupation: rt handed Physical Exam Vital Signs: BMI result Body Mass Index 26.4 Const Other: Well-nourished well-developed very friendly female awake alert and oriented x3 in no acute distress Extrem Other: Right knee examination shows a minimal effusion, mild crepitus with range of motion, tenderness along her medial joint line, positive Janelle's test, no instability Results Reviewed Results Reviewed: Standing full weight-bearing x-rays of the patient's right knee show mild diffuse joint space narrowing, no acute bony abnormalities MRI of the patient's right knee shows mild diffuse degenerative changes as well as a tear of the medial meniscus Assessment & Plan Assessment & Plan (1) Tear of medial meniscus of right knee: Code(s): S83.241A - Other tear of medial meniscus, current injury, right knee, initial encounter Category: Medical Plan Ms. Samuels presents with progressively worsening right knee pain and mechanical symptoms due to early degenerative joint disease as well as a medial meniscus tear. I had a lengthy discussion with the patient regarding the treatment options. At this point she has failed continued non operative treatments. The risks and benefits of right knee arthroscopic surgery were discussed at length with the patient. The patient wishes to proceed. Surgery will involve right knee arthroscopic partial medial meniscectomy. The patient does understand that she may not get 100% relief of her symptoms depending on the severity of her degenerative changes. She will follow-up as instructed. Feel free to call me at any time should questions regarding her orthopedic management arise. I spent 20 minutes in reviewing the patient's records and imaging studies, seeing the patient and documenting in the medical record. Coding Level of Care Code Est Pt Level 3 (09233) Complex EM visit Add On G2211 Diagnoses Tear of medial meniscus of right knee S83.241A
[2025-03-23 11:30] VITALS: BMI 26.4
--- OUTSIDE RECORDS SUMMARY | 2025-03-23 12:40 | XMS_ITS | Encounter Summary ---
Author Organization [facility] Address [address] [place] [address] Care Team Providers Care Spd Manager Name Role Phone Jose Chatman MD Primary Care Provider [phone] Encounter Details Date Type Department Care Team (Latest Contact Info) Description 10/16/[address] [facility] [address] [place] [phone] Allen Chandra MD [address] [phone] Encounter for gynecological examination (general) (routine) without abnormal findings Social History Tobacco Use Types Packs/Day Years Used Date Smoking Tobacco: Never Smokeless Tobacco: Never Comments Unknown Sex and Gender Information Value Date Recorded Sex Assigned at Not on file Legal Sex Female 5:11 PM EST Gender Identity Not on file Sexual Orientation Not on file documented as of this encounter Plan of Treatment Not on file documented as of this encounter Procedures Procedure Name Priority Date/Time Associated Diagnosis Comments PAP SMEAR Routine 10/15/2024 12:00 AM EDT Encounter for gynecological examination (general) (routine) without abnormal findings documented in this encounter Results * Pap smear (10/15/2024 12:00 AM EDT) Interpretation Negative for intraepithelial lesion or malignancy 10/19/2024 3:57 PM EDT [facility] General Categorization Negative 10/19/2024 3:57 PM EDT [facility] Other Findings Atrophy 10/19/2024 3:57 PM EDT [facility] Specimen Adequacy Satisfactory for evaluation 10/19/2024 3:57 PM EDT [facility] Pap Methodology Liquid Based Pap Test 10/19/2024 3:57 PM EDT [facility] Disclaimer The Pap test is a screening test which carries an inherent false negative rate. These test results should be correlated with the patient's clinical findings and history. This Pap test was processed using an automated screening system. Technical cytopathology services provided by [facility], at [address] [place] [address] (CLIA # [id number]/Francesca Garcia MD, [employer].) 10/19/2024 3:57 PM EDT [facility] Console Pap Interpretation Reported 10/19/2024 3:57 PM T [facility] Brushing/Spatula Cervix uteri structure / Unknown 10/15/2024 10/16/2024 7:47 AM EDT us Allen Chandra MD LAB CYTOLOGY ORDERABLES Final Result Performing Organization Address City/State/[facility] Co de Phone Number [facility] [address] [place] [address], documented in this encounter Visit Diagnoses Diagnosis Encounter for gynecological examination (general) (routine) without abnormal findings documented in this encounter Care Teams Spd Manager Relationship Specialty Start Date End Date Jose Chatman MD [address] [place] [address] PCP - General Internal Medicine 10/16/24 documented as of this encounter
--- OUTSIDE RECORDS SUMMARY | 2025-03-23 12:40 | XMS_ITS | Clinical Summary ---
Author Organization LL [address] [place] [address] [place] [phone] Phone Care Team Providers Care Station Detective Name Role Phone Jose Chatman MD Primary Care Provider [phone] Allergies No known active allergies Medications levothyroxine (SYNTHROID, LEVOTHROID) 50 mcg tablet 1 tablet (50 mcg total). 09/17/2024 Active simvastatin (ZOCOR) 20 mg tablet Take 1 tablet (20 mg total) by mouth daily. 09/17/2024 Active cholecalciferol (VITAMIN D-3) 25 mcg (1,000 unit) capsule Take 1 capsule (1,000 Units total) by mouth daily. Active ascorbic acid (VITAMIN C) 500 mg tablet Take 1 tablet (500 mg total) by mouth daily. Active sertraline (ZOLOFT) 50 mg tablet Take 0.5 tablets (25 mg total) by mouth daily. 08/18/2024 Active alendronate (FOSAMAX) 70 mg tablet Take 1 tablet (70 mg total) by mouth. 08/18/2024 Active cetirizine (ZyrTEC) 10 mg tablet Take 1 tablet (10 mg total) by mouth daily. 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 Surgical History Surgery Date Site/Laterality Comments SECTION PROCEDURE: HISTORICAL DELIVERY COLONOSCOPY PROCEDURE: HISTORICAL COLONOSCOPY TONSILLECTOMY PROCEDURE: HISTORICAL TONSILLECTOMY; COMMENT: and Adenoidectomy Medical History Medical History Date Comments Allergic rhinitis 11/28/2016 DX:Allergic rh initis Cataract 11/28/2016 DX:Cataract De Quervain's tenosynovitis 11/08/2016 DX:D e Quervain's tenosynovitis Dry eyes 11/28/2016 DX:Dry eyes 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 DX:Jennifer frank's thyroiditis Hyperlipidemia 12/10/2017 DX:Hyperlipidemi a Hypothyroidism 12/10/2017 DX:Hypothyroidis m Internal hemorrhoids 08/14/2010 DX:Internal hemorrhoids Macrocytosis 09/14/2014 DX:Macrocytosis Recurrent urinary tract infection 09/21/2014 DX:Recurrent urinary tract infection Vertigo 01/02/2018 DX:Vertigo Family History Medical History Relation Name Comments Coronary artery disease Father Relation Name Status Comments Father Mother Social History Tobacco Use Types Packs/Day Years Used Date Smoking Tobacco: Never Smokeless Tobacco: Never Comments Unknown Sex and Gender Information Value Date Recorded Sex Assigned at Not on file Legal Sex Female 5:11 PM EST Gender Identity Not on file Sexual Orientation Not on file Obstetrics History Last Filed Vital Signs Vital Sign Reading Time Taken Comments Blood Pressure - - Pulse - - Temperature - - Respiratory Rate - - Oxygen Saturation - - Inhaled Oxygen Concentration - - Weight 63.5 kg (140 lb) 10/30/2024 1:06 PM EDT Height 157.5 cm (5' 2 ) 10/30/2024 1:06 PM EDT Body Mass Index 25.61 10/30/2024 1:06 PM EDT Plan of Treatment Health Maintenance Due Date Last Done Comments Breast Cancer Screening 1955 Colorectal Cancer Screening: Colonoscopy 07/04/2022 Falls Risk Assessment 07/04/2022 Medicare Annual Wellness Visit 07/04/2022 Osteoporosis Screening (Bone Density Screening) 07/04/2022 Social Influencers of Health Screening 07/04/2022 COVID-19 Vaccine ( season) 2024 05/15/2021, 11/11/2020, 10/14/2020 Depression Screening 07/22/2024 Influenza Vaccine (#1) 2025 , 05/10/2022, 06/01/2021, Additional history exists Cholesterol Screening (Lipid Panel) 08/18/2029 08/18/2024 DTaP,Tdap,and Td Vaccines (4 - Td or Tdap) 08/16/2031 08/16/2021, 08/16/2021, 02/13/2011 Hepatitis C Screening Completed 01/02/2021 Zoster Vaccines Completed 12/09/2021, 07/25/2021 Pneumococcal Vaccine: 50+ Years Completed 07/13/2022 RSV Immunization Adult Patients Completed 10/16/2023 HIB Vaccines Aged Out No longer eligi ble based on patient's age to complete this topic HPV Vaccines Aged Out No longer eligi ble based on patient's age to complete this topic Hepatitis A Vaccines Aged Out No long er eligible based on patient's age to complete this topic Hepatitis B Vaccines Aged Out No long er eligible based on patient's age to complete this topic IPV Vaccines Aged Out No longer eligi ble based on patient's age to complete this topic MMR Vaccines Aged Out No longer eligi ble based on patient's age to complete this topic Meningococcal ACWY Vaccine Aged Out N o longer eligible based on patient's age to complete this topic Meningococcal B Vaccine Aged Out No l onger eligible based on patient's age to complete this topic RSV Immunization Patients Under 20 months Aged Out No longer eligible based on patient's age to complete this topic Varicella Vaccines Aged Out No longer eligible based on patient's age to complete this topic Insurance [employer] MEDICARE Care Teams Station Detective Relationship Specialty Start Date End Date Jose Chatman MD [address] [place] [address] PCP - General Internal Medicine 10/16/24
--- OUTSIDE RECORDS SUMMARY | 2025-03-23 12:40 | XMS_ITS | Clinical Summary ---
Author Organization [facility] Address [address] [address] Phone Care Team Providers Care Tobacco Curer Name Role Phone Hermelindo Pinto MD Unavailable [phone] Louis Zarco MD Unavailable Jose Chatman MD Primary Care Provider [phone] Allergies No known active allergies Medications cetirizine (ZYRTEC) 10 MG tablet Take 10 mg by mouth daily. Active cholecalciferol, vitamin D3, 25 mcg (1,000 unit) capsule Take 1,000 Units by mouth daily. Active calcium carbonate (CALCIUM 500 ORAL) Take 1,000 mg by mouth daily. Active glucosamine/chondr murphy A sod (OSTEO BI-FLEX ORAL) Take 1 capsule by mouth daily. Active Medication-Free Text Take 1 Bottle by mouth daily. Elixr Collagen Active amoxicillin (AMOXIL) 500 MG capsule Take 4 capsule 1 hour prior to dental procedures. 11/25/19 24 Active ascorbic acid, vitamin C, (VITAMIN C) 500 MG tablet Take 500 mg by mouth every morning. Active alendronate (FOSAMAX) 70 MG tablet Take 1 tablet (70 mg total) by mouth every 7 days. Take in the morning with a full glass of water, on an empty stomach, and do not take anything else by mouth or lie down for the next 30 min. 12 tablet 3 08/18/19 25 Active sertraline (ZOLOFT) 50 MG tabletIndications: Moderate episode of recurrent major depressive disorder Take 0.5 tablets (25 mg total) by mouth daily. 45 tablet 3 08/18/19 25 Active simvastatin (ZOCOR) 20 MG tabletIndications: Other hyperlipidemia TAKE 1 TABLET BY MOUTH EVERY NIGHT AT BEDTIME 100 tablet 2 09/17/19 25 Active levothyroxine (SYNTHROID, LEVOTHROID) 50 MCG tabletIndications: Hypothyroidism TAKE 1 TABLET BY MOUTH ONCE DAILY AND TAKE 2 TABLETS BY MOUTH ON SATURDAY 112 tablet 3 09/17/19 25 Active clotrimazole-betam ethasone (LOTRISONE) cream Apply 1 Application topically as needed (for vaginal itching). Active TURMERIC ORAL Take 1,000 mg by mouth 4 (four) times a week. liquid Active ubidecarenone/jerrell min E mixed (COQ10 SG 100 ORAL) Take 100 mg by mouth 4 (four) times a week. liquid Active Active Problems Problem Noted Date Diagnosed Date Carpal tunnel syndrome of left wrist 11/19/2023 Assessment & Plan (11/19/2023 3:04 PM EDT): Phalen test is positive today. Discussed CTS and tx. Suggested she get a wrist splint to wear 12hour on 12 b hour off. If not better we can ref to ortho Numbness and tingling in left arm 11/19/2023 Assessment & Plan (11/19/2023 3:07 PM EDT): Neurovascularly she is intact. No TTP to neck on palp. Will do neck film to eval further. I suspect the initial inflammation has progressed to surrounding tissues and now causing her worsening symptoms. She will try to locate another PT in her area that can see her sooner- and call us to send a NEW referral if she locates one. She can cont heat/ massage and stretching as this helps. Advised her to switch to tylenol more than the motrin to avoid adverse side effects of NSAIDS. Strain of left trapezius muscle 10/03/2023 Assessment & Plan (11/19/2023 3:08 PM EDT): Her neck and trapezius are not sore today on exam and she has full ROM. Her pain has dropped a bit in the scapula, see pic. She was ref to PT and can cont heat, massage, stretching as this helps Assessment & Plan (10/03/2023 2:11 PM EDT): She has strained her left trapezius muscle- I enc her to use heat, massage and NSAIDS at bedtime to help with sleep ( with food in her belly and short term only)I discussed PT she wants to try conservative measures first- If she decides to pursue PT she will call us and let us know where and I can place referral Pain of left scapula 10/03/2023 Assessment & Plan (11/19/2023 3:09 PM EDT): Pain that was in neck and trapezius is now lower in scapula. Will get film to r/o bony injury, await PT eval and she can cont heat/ massage/ stretching as this helps Assessment & Plan (10/03/2023 2:11 PM EDT): She has strained her left trapezius muscle- I enc her to use heat, massage and NSAIDS at bedtime to help with sleep ( with food in her belly and short term only)I discussed PT she wants to try conservative measures first- If she decides to pursue PT she will call us and let us know where and I can place referral Grief 07/03/2023 Assessment & Plan (07/03/2023 2:36 PM EST): Is appropriately grieving the loss of her . Condolences offered. Requested she allow her self to rest and heal. Discussed that stress does lower your immune response and during this time, as well as chronic exposure with caring for grandchildren ( one who is in daycare) predisposes her to illnesses. Warning signs reviewed- if she gets worse she will reach out. Age-related osteoporosis wit hout current pathological fracture 08/04/2020 Assessment & Plan (07/17/2022 7:24 AM EST): Continue fosamax, vitamin D Assessment & Plan (01/02/2021 8:53 AM EDT): Recent findings discussed with the patient in regards to spine and hip osteopenia/osteoporosis, obtain a vitamin D level today, advised the patient during the summer months to get 20 minutes of sunlight daily but if not possible then a vitamin D supplement might be good according to the vitamin D level now. Avoidance of very high doses of vitamin D as this can be toxic. Other considerations such as frozen Max will be taking if the next time we check the bone density scan details are missing. Moderate episode of recurrent major depressive d isorder 04/13/2020 Assessment & Plan (07/17/2022 7:25 AM EST): She Will let me know how sertraline increase is going in 1 month. Alopecia 12/05/2018 Other hyperlipidemia 12/05/2018 Assessment & Plan (07/17/2022 7:25 AM EST): Await labs Assessment & Plan (01/02/2021 8:51 AM EDT): Going forward we will check the lipids once a year and today will be the first time as such since last year. If the LDL does not meet goal significantly so then consider switching to Lipitor. Check liver enzymes today as well. She is not having any statin myalgias. LDL goal is 100 mg/dL. Hypothyroidism 12/05/2018 Assessment & Plan (07/17/2022 7:25 AM EST): Continue levothyroxine, check TSH Assessment & Plan (01/02/2021 8:51 AM EDT): Clinically no signs of hypothyroidism, continue Levoxyl at current dosing and make adjustments if TSH severely depressed or elevated. Resolved Problems Problem Noted Date Diagnosed Date Resolved Date Vaginitis and vulvovaginitis 10/03/2023 11/19/2023 Assessment & Plan (11/19/2023 3:07 PM EDT): Now resolved. She will call Fuse Coiler in f/u Assessment & Plan (10/03/2023 2:12 PM EDT): Req refill of a fungal-steroid cream for periodic, intermittent external vaginal itching- refill given per request Viral infection 07/03/2023 11/19/2023 Assessment & Plan (11/19/2023 3:07 PM EDT): Not active, resovleing Assessment & Plan (07/03/2023 2:37 PM EST): She is struggling with a viral illness likely due to lowered immune response with her current sadness from losing her and also constant exposure from caring for her grandchildren. She can continue same home therapies- call us for any change/ worsening Osteoarthritis of right hip 07/17/2022 08/18/2024 Assessment & Plan (07/17/2022 7:24 AM EST): await CELIO note. Dr. Fernandez cc--osteoporosis treatment, PT. Osteopenia of lumbar spine 01/02/2021 1 09/07/2020 Sprain of left ankle 04/21/2020 022 Bilateral hand pain 12/05/2018 07/17/20 22 Encounters Date Type Department Care Team Description 02/24/2025 9:00 AM EDT Office Visit [facility] [address] [place] [address] Jose Chatman MD Hypothyroidism, unspecified type (Primary Dx); Other hyperlipidemia; Moderate episode of recurrent major depressive disorder; Age-related osteoporosis without current pathological fracture from Last 3 Months Immunizations Immunization Administration Dates Next Due COVID-19 (Pre-05/13) Moderna Vaccine, mRNA, PF 05/15/2021,11/11/2020,10/14/2020 DTaP 08/16/2021 INFLUENZA, SPLIT VIRUS, TRIV ALENT W/ PRESERVATIVE IM 06/19/2017,04/16/2016 Influenza High-Dose Quadriva lent Preservative Free IM 08/05/2023,05/10/2022 Influenza Quadrivalent Prese rvative Free IM 06/01/2021,04/13/2020,05/07/2019,2012 Pneumococcal conjugate PCV20 07/13/2022 RSV Vaccine (monovalent, adjuvanted) 10/16/2023 Tdap 08/16/2021,02/13/2011 Zoster recombinant 12/09/2021,07/25/2021 Family History Medical History Relation Comments Coronary artery disease Father Gout Mother Hypertension Mother Breast cancer Neg Hx Colon cancer Neg Hx Relation Status Comments Father Mother Social History Tobacco Use Types Packs/Day Years Used Date Smoking Tobacco: Never Smokeless Tobacco: Never Tobacco Cessation:Counseling Given: Not Answered Alcohol Use Standard Drinks/Week Comments Yes 7 (1 standard drink = 0.6 oz pur e alcohol) Education Answer Date Recorded Are you interested in more education? Not on osei e 11/16/2022 Are you concerned about learning? Not on file 11/16/2022 No 11/16/2022 No 11/16/2022 Digital Access Answer Date Recorded No 12/11/2022 No 12/11/2022 Reliable internet access at home? Not on file 12/11/2022 Device with a working camera? Not on file Intimate Partner Violence Answer Date R ecorded Denied Basic Needs Not on file 08/07/2023 In the past 12 months have y ou been in a relationship with a person who hurts, threatens, or tries to control you? No 08/07/2023 Worried food would run out Not on file 08/07 In the past 12 months have y ou been in a relationship with a person who hurts, threatens, or tries to control you? No 08/07/2023 Comments Unknown Sex and Gender Information Value Date Recorded Sex Assigned at Not on file Legal Sex Female 2:43 PM EDT Gender Identity Not on file Sexual Orientation Not on file Last Filed Vital Signs Vital Sign Reading Time Taken Comments Blood Pressure 128/78 02/24/2025 8:58 AM EDT Pulse 59 02/24/2025 8:58 AM EDT Temperature 35.9 C (96.6 F) 02/24/2025 8:58 AM EDT Respiratory Rate 16 02/24/2025 8:58 AM EDT Oxygen Saturation 99% 02/24/2025 8:58 AM EDT Inhaled Oxygen Concentration - - Weight 64.5 kg (142 lb 3.2 oz) 02/24/2025 8:58 A M EDT Height 155.1 cm (5' 1.06 ) 02/24/2025 8:58 AM ED T Body Mass Index 26.81 02/24/2025 8:58 AM EDT Plan of Treatment Upcoming Encounters Date Type Department Care Team (Late st Contact Info) Description 09/17/2025 9:00 AM EST Office Visit [facility] Internal [facility] [address] [facility] [place] [address] Jose Chatman MD [address] [place] [address] [email or web address] Health Maintenance Due Date Last Done Comments COLOGUARD 2001 FIT TEST 2001 FOBT 2001 SIGMOIDOSCOPY 2001 VIRTUAL COLONOSCOPY 2001 COVID-19 VACCINE ( season) 2024 05/15/2021, 11/11/2020, 10/14/2020 INFLUENZA VACCINE (#1) 2025 , 05/10/2022, 05/10/2022, Additional history exists MAMMOGRAM 06/15/2025 06/15/2023, 06/22, 09/30/2021, Additional history exists TSH LEVEL 08/18/2025 08/18/2024, 01/20, 08/08/2023, Additional history exists DEPRESSION SCREENING 02/23/2026 02/23/2025 SCREENING FOR DIABETES 08/18/2027 08/18/2024, 2023 COLONOSCOPY 05/21/2028 05/21/2018 COLORECTAL CANCER SCREENING 05/21/2028 LIPID PANEL 08/18/2029 08/18/2024, 01/20, 07/06/2022, Additional history exists Adult Td,Tdap Booster 08/16/2031 08/16/2021, 011 HEPATITIS C SCREENING Completed 01/02/2021, 021 ZOSTER VACCINES Completed 12/09/2021, 07/25/2021 PNEUMOCOCCAL VACCINES (50+ years) Completed 07/13/2022 RSV VACCINE Completed 10/16/2023 OSTEOPOROSIS SCREENING INITIAL (ONE-TIME) Completed 04/11/2024, 08/08/2023, 09/05/2020 SMOKING STATUS SCREENING (Once After 26 Yrs) Completed 02/24/2025 HEPATITIS A VACCINES Aged Out No long er eligible based on patient's age to complete this topic HIB VACCINES Aged Out No longer eligi ble based on patient's age to complete this topic MENINGOCOCCAL VACCINES (ACWY) Aged Out No longer eligible based on patient's age to complete this topic MENINGOCOCCAL VACCINES (B) Aged Out N o longer eligible based on patient's age to complete this topic Medical Devices Not on file Procedures Procedure Name Priority Date/Time Associated Diagnosis Comments LIPID PANEL Routine 08/18/2024 9:56 AM EST Pure hypercholesterolemia TSH WITH REFLEX Routine 08/18/2024 9:56 AM EST Hypothyroidism, unspecified type DEXA SCAN Routine 04/11/2024 2:53 PM EDT HM MAMMOGRAPHY Routine 06/15/2023 HEPATITIS C ANTIBODY, QUALITATIVE Routine 01/02/2021 9:06 AM EDT Encounter for hepatitis C screening test for low risk patient COLONOSCOPY FOR RESULT ENTRY ONLY Routine 05/21/2018 from Last 3 Months or Most Recently Relevant to Health Maintenance Results * TSH with reflex (08/18/2024 9:56 AM EST) TSH 0.92 0.27 - 4.20 uIU/mL [facility] Blood 08/18/2024 9:56 AM EST 08/18/2024 10:00 AM EST us Jose Chatman MD LAB BLOOD ORDERABLES Final Re sult [facility] [address] [place] [address] * (ABNORMAL) Lipid panel (08/18/2024 9:56 AM EST) HDL 67 mg/dL [facility] Comment: Interpretation <40 mg/dL: Low HDL cholesterol (major risk factor for CHD) Greater than or equal to 60 mg/dL: High HDL cholesterol ( negative risk factor for CHD) HDL - cholesterol is affected by a number of factors, e.g. smoking, excerise, hormones, sex and age. CHOLESTEROL 196 0 - 240 mg/dL [facility] TRIGLYCERIDES 74 30 - 160 mg/dL [facility] LDL 114 50 - 129 mg/dL [facility] Comment: LDL levels in terms of risk for coronary heart disease: <100 mg/dL: Optimal 100-129 mg/dL: Near or above optimal 130-159 mg/dL: Borderline high 160-189 mg/dL: High >190 mg/dL: Very High CARDIAC RISK RATIO 2.9(L) 3.3 - 4.4 [facility] Blood 08/18/2024 9:56 AM EST 08/18/2024 10:00 AM EST Jose Chatman MD LAB BLOOD ORDERABLES Final Re sult Performing Organization Address [facility] Co de Phone Number [address] [address] * HM DEXA SCAN (04/11/2024 2:53 PM EDT) Historical Provider HEALTH MAINTENANCE Edited Result - Final * HM MAMMOGRAPHY FOR RESULT ENTRY ONLY (06/15/2023) Jose Chatman MD HEALTH MAINTENANCE Edited Res ult - Final * Hepatitis C antibody, qualitative (01/02/2021 9:06 AM EDT) HCV NON-REACTIV E NON-REACTI VE [facility] Blood 01/02/2021 9:06 AM EDT 01/02/2021 9:09 AM EDT Louis Zarco MD LAB BLOOD ORDERABLES Final Resul t Performing Organization Address City[facility]/ZIP Co de Phone Number [address] [address] * HM COLONOSCOPY FOR RESULT ENTRY ONLY (05/21/2018) Colonoscopy 10 year recall us Historical Provider HEALTH MAINTENANCE Final Result from Last 3 Months or Most Recently Relevant to Health Maintenance Insurance MEDICARE PART A & B MEDICARE REPLACEMENT MEDICARE PART A & B Member Subscriber Plan / Payer (Ef fective 2019-Present) Name:Karin Samuels Member ID:[id number] Relation to Subscriber:Self Name:Karin Samuels Subscriber ID:[id number] Payer ID:[id number] Group ID:Not on file Type:Medicare Address: [place] [address] MEDICARE REPLACEMENT MEDICARE PART A & B MEDICARE PART A & B MEDICARE PART A & B MEDICARE REPLACEMENT MEDICARE PART A & B MEDICARE PART A & B MEDICARE REPLACEMENT [place] [id number] MEDICARE PART A & B Member Subscriber Plan / Payer (Ef fective 2019-Present) Name:Karin Samuels Member ID:[id number] Relation to Subscriber:Self Name:Karin Samuels Subscriber ID:[id number] Payer ID:[id number] Group ID:Not on file Type:Medicare [facility] [address] [place] [id number] [facility] MEDICARE REPLACEMENT [place] [id number] MEDICARE PART A & B [facility] MEDICARE REPLACEMENT Care Teams Tobacco Curer Relationship Specialty Start Date End Date Jose Chatman MD [address] [place] [address] [email or web address] PCP - General Internal Medicine 12/24/22 Hermelindo Pinto MD Obstetrics and Gynecology 11/13/19 Louis Zarco MD [address] [place] [address] Internal Medicine 02/27/21 Additional Source Comments The information contained in this document represents components of the legal health record. It is not the complete legal health record.[facility]
== END 2025-03-23 11:49 | disposition home or self-care (01) ==
LOC: HO.HOS 11:06
PROVIDERS: PCP Internal Medicine; Visit Provider Orthopaedic Surgery
DX: S83.241A Other tear of medial meniscus, current injury, right knee, initial encounter (principal)
CPT/HCPCS: 99214; G2211

== ENCOUNTER → 2025-03-23 11:02 | Outpatient (BNVA) | payer MEDICARE, SELFPAY | PROVIDERS: PCP Internal Medicine; Visit Provider Orthopaedic Surgery | DX: S83.241D Other tear of medial meniscus, current injury, right knee, subsequent encounter (principal) | CPT/HCPCS: 99212 ==

== ENCOUNTER 2025-04-16 11:26 | Day surgery (SDC) | payer MEDICARE, SELFPAY ==
[2025-04-12 11:43] VITALS: BMI 26.4
--- NOTE | 2025-04-12 13:32 | HO.ANESPROP2 ---
Documented by User: Mickie Razo NP 04/12/25 13:32 HPI - Anesthesia Eval Consult details Narrative: 69yo F for Right Knee Arthroscopy,with partial medial meniscectomy PMFSH Active Problems Active Problems: All Active Problems Tear of medial meniscus of right knee (Acute) Right knee pain (Acute) Past Medical History Medical History Depression Osteoporosis Obesity Hx of tendinitis (~2016) Hx of fracture of wrist Arthritis Thyroid disease Elevated cholesterol Surgical History Surgical History Hx of bladder repair surgery Hx of tonsillectomy Hx of release of tendon (~2014) History of surgery on wrist (~07/02/24) Hx of section (~1980) Hx of total hip arthroplasty (~09/21/22) H/O colonoscopy Hx of inguinal hernia surgery Social History Social History Are you a primary rn care manager to a significant other at home: No Do you presently have visiting nurse or other home services: No Patient Tobacco Use Status: Never used Tobacco Use of substances other than those prescribed or required for medical reasons: No Have you been hit, kicked, punched, or otherwise hurt by someone within the past year? If so, by whom?: No Are you DNR?: No Advance Directives: No Advance Directives Information Provided: Yes Advance Directives on File: No Patient : No : No Poor oral hygiene: Yes Current occupational status: retired Current occupation: rt handed Meds Allergies Allergy/AdvReac Type Severity Reaction Status Date / Time No Known Allergies Allergy Verified 04/16/25 12:01 Home Medications ?Medication ?Instructions ?Recorded ?Confirmed ?Last Taken ?Type levothyroxine 50 mcg tablet 50 mcg PO DAILY 08/12/24 04/16/25 04/16/25 History sertraline 50 mg tablet 25 mg PO BEDTIME 08/12/24 04/16/25 Unknown History simvastatin 20 mg tablet 20 mg PO BEDTIME 08/12/24 04/16/25 Unknown History alendronate 70 mg tablet 70 mg PO QWEEK 04/12/25 04/16/25 Unknown History ascorbic acid (vitamin C) 500 mg 500 mg PO DAILY 04/12/25 04/16/25 Unknown History tablet (Vitamin C) calcium carbonate (Calcium 600) 600 mg PO DAILY 04/12/25 04/16/25 Unknown History cholecalciferol (vitamin D3) 25 25 mcg PO DAILY 04/12/25 04/16/25 Unknown History mcg (1,000 unit) tablet (Vitamin D3) glucosamine-chondroitin 250 mg-200 1 tab PO DAILY 04/12/25 04/16/25 Unknown History mg tablet Exam Height,Weight and Vital Signs: Height 5 ft 1 in Weight 63.503 kg Assessment and Plan Assessment Anesthesia Assessment: Chart Reviewed Documented by User: Lily Ellsworth MD 04/16/25 13:04 [facility] Past Medical History Medical History Depression Osteoporosis Obesity Hx of tendinitis (~2016) Hx of fracture of wrist Arthritis Thyroid disease Elevated cholesterol Family History Family history of problems with anesthesia: No Surgical History Surgical History Hx of bladder repair surgery Hx of tonsillectomy Hx of release of tendon (~2014) History of surgery on wrist (~07/02/24) Hx of section (~1980) Hx of total hip arthroplasty (~09/21/22) H/O colonoscopy Hx of inguinal hernia surgery History of Problems with Anesthesia: No Social History Social History Are you a primary rn care manager to a significant other at home: No Do you presently have visiting nurse or other home services: No Patient Tobacco Use Status: Never used Tobacco Use of substances other than those prescribed or required for medical reasons: No Have you been hit, kicked, punched, or otherwise hurt by someone within the past year? If so, by whom?: No Are you DNR?: No Advance Directives: No Advance Directives Information Provided: Yes Advance Directives on File: No Patient : No : No Poor oral hygiene: Yes Current occupational status: retired Current occupation: rt handed Meds Allergies Allergy/AdvReac Type Severity Reaction Status Date / Time No Known Allergies Allergy Verified 04/16/25 12:01 Home Medications ?Medication ?Instructions ?Recorded ?Confirmed ?Last Taken ?Type levothyroxine 50 mcg tablet 50 mcg PO DAILY 08/12/24 04/16/25 04/16/25 History sertraline 50 mg tablet 25 mg PO BEDTIME 08/12/24 04/16/25 Unknown History simvastatin 20 mg tablet 20 mg PO BEDTIME 08/12/24 04/16/25 Unknown History alendronate 70 mg tablet 70 mg PO QWEEK 04/12/25 04/16/25 Unknown History ascorbic acid (vitamin C) 500 mg 500 mg PO DAILY 04/12/25 04/16/25 Unknown History tablet (Vitamin C) calcium carbonate (Calcium 600) 600 mg PO DAILY 04/12/25 04/16/25 Unknown History cholecalciferol (vitamin D3) 25 25 mcg PO DAILY 04/12/25 04/16/25 Unknown History mcg (1,000 unit) tablet (Vitamin D3) glucosamine-chondroitin 250 mg-200 1 tab PO DAILY 04/12/25 04/16/25 Unknown History mg tablet Exam Airway Mallampati Class: II TM Dist: >3cm Neck ROM: Full Heart: rrr Lungs: cta Assessment and Plan Assessment Anesthesia Assessment: Anesthesia Plan Discussed Final Anesthetic Review Family History of Problems with Anesthesia: No History of Problems with Anesthesia: No NPO: Yes ASA Class: II Final Preanesthetic Review: No Changes in Pt Med Stat, Meds/Allgs Chart Reviewed, Consent Obtained/Reviewed and Anes Risks/Benef Reviewed Patient Risk: Low Procedure Risk: Intermediate Anesthetic Plan Anesthetic Plan: GA and Agree w/ Assess. and Plan Disposition: Standard PACU
[2025-04-16 12:01] VITALS: BP 137/60; PULSE 56; RESP 12; TEMP 36.7; O2SAT 96
[2025-04-16] MEDS: Lactated Ringers 1,000 ML 100 ML IVCONT (12:25)
[2025-04-16 14:50] VITALS: BP 139/56; PULSE 70; RESP 16; TEMP 36.1; O2SAT 99
--- NOTE | 2025-04-16 14:52 | P.BOP_ITS ---
Brief Operative Note Date of Service: 04/16/25 Pre-op diagnosis: Right knee medial meniscus tear, right knee degenerative joint disease Post-op diagnosis: other (Right knee medial meniscus tear, right knee degenerative joint disease, right knee lateral meniscus tear) Procedure: Right knee arthroscopic partial medial and lateral meniscectomies, right knee arthroscopic chondroplasty of the undersurface of the patella as well as the medial femoral condyle Implants: none Surgeon: Kenneth Lai MD Anesthesia: GLMA Was an Director Of People used for this Procedure?: No Estimated blood loss (mL): 10 Pathology: none sent Condition: stable Disposition: PACU
--- NOTE | 2025-04-16 14:54 | W.PM.OPN ---
Operative Note Operative Note Date of Service: 04/16/25 Narrative: After the patient was identified as Karin Samuels and her right knee was initialed by myself they were brought to the operating room where general anesthesia was induced by the anesthesiologist in routine fashion. The patient was given 2 g of IV Ancef for infection prophylaxis. A formal time-out was completed. The patient's right lower extremity was prepped and draped in sterile fashion. Marcaine with epinephrine was injected into the planned incision sites as well as their right knee joint. A # 11 scalpel blade was used to make an anterolateral portal 1 cm proximal to the joint line and 1 cm lateral to the patellar tendon. Blunt trocar technique was used into the suprapatellar pouch with the knee in extension. Diagnostic arthroscopy showed multiple bands of thickened plica which would be excised at the end of the procedure. There were no loose bodies or abnormalities found in either the medial or lateral gutters. There were diffuse grades 2 and 3 degenerative changes of the undersurface of the patella as well as grades 1 and 2 degenerative changes of the trochlear groove. The patient's knee was flexed to 45 degrees and a valgus force was placed upon it. The medial compartment was entered. An anteromedial portal was made 1 cm proximal to the joint line and 1 cm medial to the patellar tendon. Probing of the medial meniscus showed a radial tear of the posterior horn. A partial medial meniscectomy was performed using the arthroscopic shaver. Following the partial meniscectomy the remainder of the meniscus tissue was stable. There were diffuse grades 1 and 2 degenerative changes of the medial femoral condyle as well as diffuse grade 1 degenerative changes of the medial tibial plateau. The articular surface of the medial femoral condyle was made smooth using the arthroscopic shaver. The articular surface of the medial tibial plateau was already smooth so no chondroplasty was indicated. The patient's knee was then placed into a neutral position. There was no injury to the anterior cruciate ligament. The patient's knee was then placed into the figure of 4 position and the lateral compartment was entered. There were minimal degenerative changes of the lateral femoral condyle and lateral tibial plateau. There was no evidence of lateral meniscus tearing. The patient's knee was once again brought into extension and the suprapatellar pouch was entered. The arthroscopic shaver and the ArthroCare Wand were used to excise the thickened bands of plica. The undersurface of the patella was then made smooth using the arthroscopic shaver. The articular surface of the trochlear groove was already smooth so no chondroplasty was indicated. The knee joint was irrigated and then drained. All arthroscopic instruments were removed. The 2 portals were closed with 3-0 nylon interrupted suture. The knee joint was injected with Marcaine. Dry sterile dressing and Braulio bandages were placed over the patient's knee. The patient was awoken and extubated in the operating room. They were transferred to the recovery room in stable condition.
[2025-04-16 14:55] VITALS: BP 136/47; PULSE 68; RESP 16; O2SAT 99
[2025-04-16 15:00] VITALS: BP 140/59; PULSE 65; RESP 16; O2SAT 99
[2025-04-16 15:05] VITALS: BP 138/57; PULSE 65; RESP 16; TEMP 36.1; O2SAT 99
== END 2025-04-16 15:47 | disposition home or self-care (01) ==
PROVIDERS: PCP Internal Medicine; Visit Provider Orthopaedic Surgery
PROC: (CPT 29870; principal; 2025-04-16 13:30)
DX: S83.241A Other tear of medial meniscus, current injury, right knee, initial encounter (principal); S83.281A Other tear of lateral meniscus, current injury, right knee, initial encounter; W01.0XXA Fall on same level from slipping, tripping and stumbling without subsequent striking against object, initial encounter; Y93.01 Activity, walking, marching and hiking; Y92.9 Unspecified place or not applicable; Y99.9 Unspecified external cause status; M23.51 Chronic instability of knee, right knee; M25.561 Pain in right knee; M17.11 Unilateral primary osteoarthritis, right knee; M67.51 Plica syndrome, right knee; M81.0 Age-related osteoporosis without current pathological fracture; E78.00 Pure hypercholesterolemia, unspecified; E07.9 Disorder of thyroid, unspecified; F32.A Depression, unspecified; Z79.899 Other long term (current) drug therapy; Z96.641 Presence of right artificial hip joint; Z98.890 Other specified postprocedural states
CPT/HCPCS: 29883; J0131; J0165; J0690; J0696; J1100; J2003; J2405; J2704; J2795; J3010

== ENCOUNTER → 2025-04-16 11:26 | Outpatient (BNV) | payer MEDICARE, SELFPAY | PROVIDERS: PCP Internal Medicine; Visit Provider Orthopaedic Surgery | DX: S83.241A Other tear of medial meniscus, current injury, right knee, initial encounter (principal); S83.281A Other tear of lateral meniscus, current injury, right knee, initial encounter | CPT/HCPCS: 29880 ==

== ENCOUNTER 2025-04-27 09:44 | Outpatient (AMB) | payer MEDICARE, SELFPAY ==
--- NOTE | 2025-04-27 09:46 | MHC.OFFVIS ---
Intake Visit Reasons: OV- Follow up 04/16/25 Rt Knee . Intake Note: Karin is a 69 year old female who presents with complaints of mild to moderate discomfort in her right knee after undergoing right knee arthroscopic surgery on 04/16/2025. She continues with her home stretching program. She is no longer taking narcotics for her discomfort. Allergies No Known Allergies Allergy (Verified 04/27/25 09:53) Medication List - Last Reconciled 04/27/25 by Kenneth Lai MD alendronate 70 mg PO QWEEK ascorbic acid (vitamin C) (Vitamin C) 500 mg PO DAILY calcium carbonate (Calcium 600) 600 mg PO DAILY cholecalciferol (vitamin D3) (Vitamin D3) 25 mcg PO DAILY glucosamine-chondroitin 250-200 mg 1 tab PO DAILY levothyroxine 50 mcg PO DAILY oxycodone 5 mg PO Q6H PRN sertraline 25 mg PO BEDTIME simvastatin 20 mg PO BEDTIME PFSH Medical History Depression Osteoporosis Obesity Hx of tendinitis (~2016) Hx of fracture of wrist Arthritis Thyroid disease Elevated cholesterol Surgical History Hx of bladder repair surgery Hx of tonsillectomy Hx of release of tendon (~2014) History of surgery on wrist (~07/02/24) Hx of section (~1980) Hx of total hip arthroplasty (~09/21/22) H/O colonoscopy Hx of inguinal hernia surgery Social History Are you a primary urgent care nurse practitioner to a significant other at home: No Do you presently have visiting nurse or other home services: No Patient Tobacco Use Status: Never used Tobacco Current occupational status: retired Current occupation: rt handed Physical Exam Extrem Other: Right knee examination shows that the surgical incisions are healing well, minimal discomfort with range of motion, no instability Assessment & Plan Assessment & Plan (1) Right knee pain: Code(s): M25.561 - Pain in right knee Category: Medical Plan Ms. Samuels is doing fairly well after undergoing right knee arthroscopic surgery on 04/16/2025. Her sutures were removed and Steri-Strips placed over her incisions. She will continue with her home stretching program. We will hold off on formal physical therapy for now. She will contact me prior to her follow-up appointment in 6 weeks should any questions or concerns arise. Coding Level of Care Code Global (34806) Diagnoses Right knee pain M25.561
--- OUTSIDE RECORDS SUMMARY | 2025-04-27 11:10 | XMS_ITS | Clinical Summary ---
Author Organization [facility] Address [address] [address] Phone Care Team Providers Care Opthalmic Tech Name Role Phone Hermelindo Pinto MD Unavailable [phone] Louis Zarco MD Unavailable Jose Chatman MD Primary Care Provider [phone] Allergies No known active allergies Medications cetirizine [...] PM EDT): Now resolved. She will call Industrial Maintenance Tech in f/u Assessment & Plan (10/03/2023 2:12 [...] Description 02/24/2025 9:00 AM EDT Office Visit [facility] Internal Medicine [address] [place] [address] Jose Chatman MD Hypothyroidism, unspecified type (Primary [...] Description 09/17/2025 9:00 AM EST Office Visit [facility] Internal Medicine [address] [facility] [place] [address] Jose Chatman MD [address] [place] [address] [email or web address] Maintenance Due Date Last Done Comments COLOGUARD 2001 FIT TEST 2001 FOBT 2001 SIGMOIDOSCOPY 2001 VIRTUAL COLONOSCOPY 2001 INFLUENZA VACCINE (#1) 2025 , 05/10/2022, 05/10/2022, Additional history exists COVID-19 VACCINE ( season) 2025 05/15/2021, 11/11/2020, 10/14/2020 MAMMOGRAM 06/15/2025 06/15/2023, 06/22, 09/30/2021, Additional history exists TSH LEVEL 08/18/2025 08/18/2024, 2 12/2023, 08/08/2023, Additional history exists DEPRESSION SCREENING 02/23/2026 [...] EST) TSH 0.92 0.27 - 4.20 uIU/mL [facility] Blood 08/18/2024 9:56 AM EST 08/18/2024 10:00 AM EST us Jsoe Chatman MD LAB BLOOD ORDERABLES Final Re sult [facility] [address] [place] [address] * (ABNORMAL) Lipid panel (08/18/2024 9:56 AM EST) HDL 67 mg/dL [facility] Comment: Interpretation <40 mg/dL: Low HDL cholesterol (major risk factor for CHD) Greater than or equal to 60 mg/dL: High HDL cholesterol ( negative risk factor for CHD) HDL - cholesterol is affected by a number of factors, e.g. smoking, excerise, hormones, sex and age. CHOLESTEROL 196 0 - 240 mg/dL [facility] TRIGLYCERIDES 74 30 - 160 mg/dL [facility] LDL 114 50 - 129 mg/dL [facility] Comment: LDL levels in terms of risk for coronary heart disease: <100 mg/dL: Optimal 100-129 mg/dL: Near or above optimal 130-159 mg/dL: Borderline high 160-189 mg/dL: High >190 mg/dL: Very High CARDIAC RISK RATIO 2.9(L) 3.3 - 4.4 C [facility] Blood 08/18/2024 9:56 AM EST 08/18/2024 10:00 AM EST Jose Chatman MD LAB BLOOD ORDERABLES Final Re sult Performing Organization Address City/[facility] Co de Phone Number [address] [address] * HM DEXA SCAN (04/11/2024 2:53 PM EDT) Historical Provider HEALTH MAINTENANCE Edited Result - Final * HM MAMMOGRAPHY FOR RESULT ENTRY ONLY (06/15/2023) Jose Chatman MD HEALTH MAINTENANCE Edited Res ult - Final * Hepatitis C antibody, qualitative (01/02/2021 9:06 AM EDT) HCV NON-REACTIV E NON-REACTI VE [facility] Blood 01/02/2021 9:06 AM EDT 01/02/2021 9:09 AM EDT Louis Zarco MD LAB BLOOD ORDERABLES Final Resul t Performing Organization Address City/[facility]/ZIP Co de Phone Number [address] [address] * HM COLONOSCOPY FOR RESULT ENTRY ONLY (05/21/2018) Colonoscopy 10 year recall us Historical Provider HEALTH MAINTENANCE Final Result from Last 3 Months or Most Recently Relevant to Health Maintenance Insurance MEDICARE PART A & B MEDICARE REPLACEMENT MEDICARE PART A & B Member Subscriber Plan / Payer (Ef fective 2019-Present) Name:Karin Samuels Member ID:[id number] Relation to Subscriber:Self Name:Karin Samuels Subscriber ID:[id number] Payer ID:[id number] Group ID:Not on file Type:Medicare Address: [employer] [address] MEDICARE REPLACEMENT MEDICARE PART A & B MEDICARE PART A & B MEDICARE PART A & B MEDICARE REPLACEMENT MEDICARE PART A & B MEDICARE PART A & B MEDICARE REPLACEMENT [place] [id number] MEDICARE PART A & B Member Subscriber Plan / Payer (Ef fective 2019-Present) Name:Karin Samuels Member ID:[id number] Relation to Subscriber:Self Name:Karin Samuels Subscriber ID:[id number] Payer ID:[id number] Group ID:Not on file Type:Medicare Address: [facility] [address] [place] [id number] [facility] MEDICARE REPLACEMENT [place] [id number] MEDICARE PART A & B [facility] MEDICARE REPLACEMENT Care Teams Opthalmic Tech Relationship Specialty Start Date End Date Jose Chatman MD [address] [place] [address] [email or web address] PCP - General Internal Medicine 12/24/22 Hermelindo Pinto MD Obstetrics and Gynecology 11/13/19 Louis Zarco MD [address] [place] [address] Internal Medicine 02/27/21 Additional Source Comments The information contained in this document represents components of the legal health record. It is not the complete legal health record.[facility]
--- OUTSIDE RECORDS SUMMARY | 2025-04-27 11:10 | XMS_ITS | Clinical Summary ---
Author Organization LL [address] [place] [address] [place] [phone] Phone Care Team Providers Care Box Worker Name Role Phone Jose Chatman MD Primary Care Provider [phone] Allergies No known active allergies Medications levothyroxine [...] Cancer Screening 1955 Colorectal Cancer Screening: Colonoscopy 1955 [place] Risk Assessment 07/04/2022 Medicare Annual Wellness Visit 07/04/2022 Osteoporosis Screening (Bone Density Screening) 07/04/2022 Social Influencers of Health Screening 07/04/2022 Depression Screening 07/22/2024 COVID-19 Vaccine ( season) 2025 05/15/2021, 11/11/2020, 10/14/2020 Influenza Vaccine (#1) 2025 , 05/10/2022, 06/01/2021, [...] topic Insurance [employer] MEDICARE Care Teams Box Worker Relationship Specialty Start Date End Date Jose Chatman MD [address] [place] [address] PCP - General Internal Medicine 10/16/24
--- OUTSIDE RECORDS SUMMARY | 2025-04-27 11:10 | XMS_ITS | Encounter Summary ---
Author Organization [facility] Address [address] [place] [address] Care Team Providers Care Financial Institution Treasurer Name Role Phone Jose Chatman MD Primary Care Provider [phone] Encounter Details Date Type Department Care Team (Latest Contact Info) Description 10/16/2024 Lab Requisition [facility] Lab [address] [place] [phone] Allen Chandra MD [address] [phone] Encounter for gynecological examination (general) (routine) without [...] lesion or malignancy 10/19/2024 3:57 PM EDT [facility] ([facility] General Categorization Negative 10/19/2024 3:57 PM EDT [facility] Other Findings Atrophy 10/19/2024 3:57 PM EDT [facility] Specimen Adequacy Satisfactory for evaluation 10/19/2024 3:57 PM EDT [facility] Pap Methodology Liquid Based Pap Test 10/19/2024 3:57 PM EDT [facility] Disclaimer The Pap test is a screening test which carries an inherent false negative rate. These test results should be correlated with the patient's clinical findings and history. This Pap test was processed using an automated screening system. Technical cytopathology services provided by [facility], at [address] [place] [id number] (CLIA # [id number]/Francesca Garcia MD, Process Owner.) 10/19/2024 3:57 PM EDT [facility] Console Pap Interpretation Reported 10/19/2024 3:57 PM T [facility] Brushing/Spatula Cervix uteri structure / Unknown 10/15/2024 10/16/2024 7:47 AM EDT us Allen Chandra MD LAB CYTOLOGY ORDERABLES Final Result Performing Organization Address City/State/[facility] Co de Phone Number [facility] [address] [place] [address], documented in this encounter Visit Diagnoses Diagnosis Encounter for gynecological examination (general) (routine) without abnormal findings documented in this encounter Care Teams Financial Institution Treasurer Relationship Specialty Start Date End Date Jose Chatman MD [address] [place] [address] PCP - General Internal Medicine 10/16/24 documented as of this encounter
== END 2025-04-27 10:06 | disposition home or self-care (01) ==
LOC: HO.HOS 09:45
PROVIDERS: PCP Internal Medicine; Visit Provider Orthopaedic Surgery
DX: M25.561 Pain in right knee (principal)
CPT/HCPCS: 99024

== ENCOUNTER → 2025-04-27 09:44 | Outpatient (BNVA) | payer MEDICARE, SELFPAY | PROVIDERS: PCP Internal Medicine; Visit Provider Orthopaedic Surgery | DX: M25.561 Pain in right knee (principal); Z98.890 Other specified postprocedural states | CPT/HCPCS: 99212 ==

== ENCOUNTER 2025-06-09 09:38 | Outpatient (AMB) | payer MEDICARE, SELFPAY ==
--- NOTE | 2025-06-09 09:44 | A.OFFVIS_ITS ---
Vital Signs 06/09/25 09:46 Height 5 ft 1 in Weight 140 lb BMI 26.4 Intake Visit Reasons: OV- Follow up 04/16/25 Rt Knee Intake Note: Karin is a 69 year old female who presents with complaints of mild intermittent discomfort in her right knee after undergoing right knee arthroscopic surgery on 04/16/2025. She continues to swim and walk on a treadmill for exercise. She denies any fevers or chills. Allergies No Known Allergies Allergy (Verified 06/09/25 09:47) Medication List - Last Reconciled 06/09/25 by Kenneth Lai MD alendronate 70 mg PO QWEEK ascorbic acid (vitamin C) (Vitamin C) 500 mg PO DAILY calcium carbonate (Calcium 600) 600 mg PO DAILY cholecalciferol (vitamin D3) (Vitamin D3) 25 mcg PO DAILY glucosamine-chondroitin 250-200 mg 1 tab PO DAILY levothyroxine 50 mcg PO DAILY sertraline 25 mg PO BEDTIME simvastatin 20 mg PO BEDTIME PFSH Medical History Depression Osteoporosis Obesity Hx of tendinitis (~2016) Hx of fracture of wrist Arthritis Thyroid disease Elevated cholesterol Surgical History Hx of bladder repair surgery Hx of tonsillectomy Hx of release of tendon (~2014) History of surgery on wrist (~07/02/24) Hx of section (~1980) Hx of total hip arthroplasty (~09/21/22) H/O colonoscopy Hx of inguinal hernia surgery Social History Are you a primary health care / medical job titles to a significant other at home: No Do you presently have visiting nurse or other home services: No Patient Tobacco Use Status: Never used Tobacco Current occupational status: retired Current occupation: rt handed Physical Exam Vital Signs: BMI result Body Mass Index 26.4 Extrem Other: Right knee examination shows that the surgical incisions are well healed, no erythema, minimal crepitus with range of motion, minimal discomfort with range of motion, no instability Assessment & Plan Assessment & Plan (1) Right knee pain: Code(s): M25.561 - Pain in right knee Category: Medical Plan Ms. Samuels continues to do very well after undergoing right knee arthroscopic surgery on 04/16/2025. She will continue with her exercise program. I discussed with the patient the fact that her discomfort should continue to improve over the next few months. She will contact me prior to her follow-up appointment in 3 months should any questions or concerns arise. Feel free to call me at any time should questions regarding her orthopedic management arise. Coding Level of Care Code Global (82918) Diagnoses Right knee pain M25.561
[2025-06-09 09:46] VITALS: BMI 26.4
--- OUTSIDE RECORDS SUMMARY | 2025-06-09 17:49 | XMS_ITS | Clinical Summary ---
Author Organization LL [address] [place] [address] [place] [phone] Phone Care Team Providers Care Inspector Precision Assembly Name Role Phone Jose Chatman MD Primary Care Provider [phone] Allergies No known active allergies Medications levothyroxine [...] topic Insurance [employer] MEDICARE Care Teams Inspector Precision Assembly Relationship Specialty Start Date End Date Jose Chatman MD [address] [place] [address] PCP - General Internal Medicine 10/16/24
--- OUTSIDE RECORDS SUMMARY | 2025-06-09 17:49 | XMS_ITS | Clinical Summary ---
Author Organization [facility] Address [address] [address] Phone Care Team Providers Care Fsr Name Role Phone Hermelindo Pinto MD Unavailable [phone] Louis Zarco MD Unavailable Jose Chatman MD Primary Care Provider [phone] Allergies No known active allergies Medications cetirizine (ZYRTEC) 10 MG tablet Take 10 mg by mouth daily. Active cholecalciferol, vitamin D3, 25 mcg (1,000 unit) capsule Take 1,000 Units by mouth daily. Active calcium carbonate (CALCIUM 500 ORAL) Take 1,000 mg by mouth daily. Active glucosamine/chond r murphy A sod (OSTEO BI-FLEX ORAL) Take 1 capsule by mouth daily. Active Medication-Free Text Take 1 Bottle by mouth daily. Elixr Collagen Active amoxicillin (AMOXIL) 500 MG capsule Take 4 capsule 1 hour prior to dental procedures. 024 Active ascorbic acid, vitamin C, (VITAMIN C) 500 MG tablet Take 500 mg by mouth every morning. Active levothyroxine (SYNTHROID, LEVOTHROID) 50 MCG tabletIndications :Hypothyroidism TAKE 1 TABLET BY MOUTH ONCE DAILY AND TAKE 2 TABLETS BY MOUTH ON SATURDAY 112 tablet 3 025 Active clotrimazole-beta methasone (LOTRISONE) cream Apply 1 Application topically as needed (for vaginal itching). Active TURMERIC ORAL Take 1,000 mg by mouth 4 (four) times a week. liquid Active ubidecarenone/vit tavarez E mixed (COQ10 SG 100 ORAL) Take 100 mg by mouth 4 (four) times a week. liquid Active sertraline (ZOLOFT) 50 MG tabletIndications :Moderate episode of recurrent major depressive disorder TAKE ONE-HALF TABLET BY MOUTH DAILY 45 tablet 3 Active alendronate (FOSAMAX) 70 MG tablet TAKE 1 TABLET BY MOUTH WEEKLY IN THE MORNING WITH 8 OZ OF PLAIN WATER ON AN EMPTY STOMACH 30 MINS BEFORE FIRST FOOD, DRINK OR MEDS. STAY UPRIGHT FOR 30 MINS 12 tablet 3 Active simvastatin (ZOCOR) 20 MG tabletIndications :Other hyperlipidemia TAKE 1 TABLET BY MOUTH EVERY NIGHT AT BEDTIME 90 tablet 3 Active alendronate (FOSAMAX) 70 MG tablet Take 1 tablet (70 mg total) by mouth every 7 days. Take in the morning with a full glass of water, on an empty stomach, and do not take anything else by mouth or lie down for the next 30 min. 12 tablet 3 025 2024 Discontinued sertraline (ZOLOFT) 50 MG tabletIndications :Moderate episode of recurrent major depressive disorder Take 0.5 tablets (25 mg total) by mouth daily. 45 tablet 3 025 2024 Discontinued simvastatin (ZOCOR) 20 MG tabletIndications :Other hyperlipidemia TAKE 1 TABLET BY MOUTH EVERY NIGHT AT BEDTIME 100 tablet 2 025 2024 Discontinued Active Problems Problem Noted Date Diagnosed Date [...] she will reach out. Age-related osteoporosis wit hodickson current pathological fracture 08/04/2020 Assessment & Plan [...] PM EDT): Now resolved. She will call Dobie Man in f/u Assessment & Plan (10/03/2023 2:12 [...] Encounters Date Type Department Care Team Description 06/05/2025 Refill [facility] Internal Medicine [address] [facility] [place] [address] Jose Chatman MD Medication Refill 04/29/2025 Telephone [facility] Internal Medicine [address] [facility] [place] [address] Jose Chatman MD surgery knee from Last 3 Months Immunizations Immunization Administration [...] Description 09/17/2025 9:00 AM EST Office Visit [facility] Internal Medicine [address] [place] [address] Jose Chatman MD [address] [place] [address] [email or web address] Health Maintenance Due Date Last Done Comments COLOGUARD 2001 FIT TEST 2001 FOBT 2001 SIGMOIDOSCOPY 2001 VIRTUAL COLONOSCOPY 2001 INFLUENZA VACCINE (#1) 2025 , 05/10/2022, 05/10/2022, Additional history exists COVID-19 VACCINE ( season) 2025 05/15/2021, 11/11/2020, 10/14/2020 MAMMOGRAM 06/15/2025 06/15/2023, 06/22, 09/30/2021, Additional history exists TSH LEVEL 08/18/2025 08/18/2024, 072 12/2023, 08/08/2023, Additional history exists DEPRESSION SCREENING [...] DEXA SCAN Routine 04/11/2024 2:53 PM EDT MAMMOGRAPHY Routine 06/15/2023 HEPATITIS C ANTIBODY, QUALITATIVE Routine 01/02/2021 9:06 AM EDT Encounter for hepatitis C screening test for low risk patient COLONOSCOPY FOR RESULT ENTRY ONLY Routine 05/21/2018 from Last 3 Months or Most Recently Relevant to Health Maintenance Results * TSH with reflex (08/18/2024 9:56 AM EST) TSH 0.92 0.27 - 4.20 uIU/mL [facility] Blood 08/18/2024 9:56 AM EST 08/18/2024 10:00 AM EST Jose Chatman MD LAB BLOOD BKR ORDERABLES Faby l Result Performing Organization Address [facility] Co de Phone Number [address] [address] * (ABNORMAL) Lipid panel (08/18/2024 9:56 AM EST) HDL 67 mg/dL [facility] Comment: Interpretation <40 mg/dL: Low HDL cholesterol (major risk factor for CHD) Greater than or equal to 60 mg/dL: High HDL cholesterol ( negative risk factor for CHD) HDL - cholesterol is affected by a number of factors, e.g. smoking, excerise, hormones, sex and age. CHOLESTEROL 196 0 - 240 mg/dL [facility] TRIGLYCERIDES 74 30 - 160 mg/dL [facility] LDL 114 50 - 129 mg/dL [facility] Comment: LDL levels in terms of risk for coronary heart disease: <100 mg/dL: Optimal 100-129 mg/dL: Near or above optimal 130-159 mg/dL: Borderline high 160-189 mg/dL: High >190 mg/dL: Very High CARDIAC RISK RATIO 2.9(L) 3.3 - 4.4 [facility] Blood 08/18/2024 9:56 AM EST 08/18/2024 10:00 AM EST Jose Chatman MD LAB BLOOD BKR ORDERABLES Faby l Result Performing Organization Address City/[facility]/ZIP Co de Phone Number [address] [address] * HM DEXA SCAN (04/11/2024 2:53 PM EDT) Historical Provider HEALTH MAINTENANCE Edited Result - Final * MAMMOGRAPHY FOR RESULT ENTRY ONLY (06/15/2023) Jose Chatman MD HEALTH MAINTENANCE Edited Res ult - Final * Hepatitis C antibody, qualitative (01/02/2021 9:06 AM EDT) HCV NON-REACTIV E NON-REACTI VE [facility] Blood 01/02/2021 9:06 AM EDT 01/02/2021 9:09 AM EDT us Louis Zarco MD LAB BLOOD BKR ORDERABLES Final R esult [facility] [address] [place] [address] * COLONOSCOPY FOR RESULT ENTRY ONLY (05/21/2018) Colonoscopy 10 year recall us Historical Provider HEALTH MAINTENANCE Final Result from Last 3 Months or Most Recently Relevant to Health Maintenance Insurance MEDICARE PART A & B [facility] MEDICARE REPLACEMENT MEDICARE PART A & B MEDICARE REPLACEMENT [place] [id number] MEDICARE PART A & B MEDICARE PART A & B MEDICARE PART A & B MEDICARE REPLACEMENT MEDICARE PART A & B MEDICARE PART A & B MEDICARE REPLACEMENT MEDICARE PART A & B [facility] MEDICARE REPLACEMENT MEDICARE PART A & B [facility] MEDICARE REPLACEMENT Care Teams Fsr Relationship Specialty Start Date End Date Jose Chatman MD [address] [place] [id number] PCP - General Internal Medicine 12/24/22 Hermelindo Pinto MD [address] [place] [phone] Obstetrics and Gynecology 11/13/19 Louis Zarco MD [address] [place] [phone] [email or web address] Internal Medicine 02/27/21 Additional Source Comments The information contained in this document represents components of the legal health record. It is not the complete legal health record.[facility]
--- OUTSIDE RECORDS SUMMARY | 2025-06-09 17:49 | XMS_ITS | Encounter Summary ---
Author Organization [facility] Address [address] [facility] [address] [place] [address] Phone Care Team Providers Care Parquet Floor Layer'S Helper Name Role Phone Hermelindo Pinto MD Unavailable [phone] Louis Zarco MD Unavailable Jose Chatman MD Primary Care Provider Reason for Visit * Reason Comments Medication Refill Encounter Details Date Type Department Care Team (Late st Contact Info) Description 06/05/2025 Refill [facility] Internal Medicine [address] [place], [place] [phone] Jose Chatman MD [address] [place] [address] [email or web address] Medication Refill Social History Tobacco Use Types Packs/Day Years Used Date Smoking Tobacco: Never Smokeless Tobacco: Never Alcohol Use Standard Drinks/Week Comments Yes 7 [...] on file documented as of this encounter Progress Notes * Mariola Tamayo CMA - 06/07/2025 8:41 AM EST Rx Care Gap Status - Instructions for Clinical Staff (prescriber discretion applies): > Mismatch review guide > N/a - No action needed Visit Info Last visit: 02/24/2025 Jose Chatman MD - Internal Medicine [facility] > Requested f/u: Return in about 6 months (around 08/23/2025), or sawv. Upcoming visit: 09/17/2025 Jose Chatman MD - Internal Medicine [facility] ACTIONS TAKEN BY Mariola Tamayo CMA - Updated rx duration per protocol. Antidepressant / Anxiolytics (Non-Benzodiazepine) Rx Protocol - sertraline HCl Criteria met; renew for up to 12 months. Visit in the past 14 months: Yes Cholesterol Medication Rx Protocol - simvastatin Criteria met; renew for up to 12 months. Visit in the past 14 months: Yes Clinical criteria: - Lipid panel within past year: Yes Oral Bisphosphonate Rx Protocol - alendronate sodium Criteria met; renew for up to 12 months. Visit in the past 24 months: Yes Lab Results Component Value Date LDL 114 08/18/2024 HDL 67 08/18/2024 CARDIAC RISK RATIO 2.9 (L) 08/18/2024 TRIGLYCERIDES 74 08/18/2024 CHOLESTEROL 196 08/18/2024 documented in this encounter Plan of Treatment Upcoming Encounters Date Type Department Care Team (Late st Contact Info) Description 09/17/2025 9:00 AM EST Office Visit [facility] Internal Medicine [address] [place] [address] Jose Chatman MD [address] [place] [address] [email or web address] documented as of this encounter Visit Diagnoses Diagnosis Moderate episode of recurrent major depressive disorder Other hyperlipidemia documented in this encounter Additional Health Concerns Assessment Noted Time PHQ-2 Depression Total Score: 2 02/24/20 25 8:52 PM EDT documented as of this encounter Care Teams Parquet Floor Layer'S Helper Relationship Specialty Start Date End Date Jose Chatman MD [address] [place] [address] [email or web address] PCP - General Internal Medicine 12/24/22 Hermelindo Pinto MD [facility] [address] [address] Obstetrics and Gynecology 11/13/19 Louis Zarco MD [address] [place] [address] [email or web address] Internal Medicine 02/27/21 documented as of this encounter Additional Source Comments The information contained in this document represents components of the legal health record. It is not the complete legal health record.[facility]
--- OUTSIDE RECORDS SUMMARY | 2025-06-09 17:50 | XMS_ITS | Encounter Summary ---
Author Organization [facility] Address [address] [place] [address] Care Team Providers Care Floral Merchandiser Name Role Phone Jose Chatman MD Primary Care Provider [phone] Encounter Details Date Type Department Care Team (Latest Contact Info) Description 10/16/2024 Lab Requisition [facility] [address] [place] [phone] Allen hCandra MD [address] [phone] Encounter for gynecological examination (general) (routine) without [...] lesion or malignancy 10/19/2024 3:57 PM EDT [facility] General Categorization Negative 10/19/2024 3:57 PM EDT [facility] Other Findings Atrophy 10/19/2024 3:57 PM EDT [facility] Specimen Adequacy Satisfactory for evaluation 10/19/2024 3:57 PM EDT [facility] Pap Methodology Liquid Based Pap Test 10/19/2024 3:57 PM EDT [facility] Disclaimer The Pap test is a screening test which carries an inherent false negative rate. These test results should be correlated with the patient's clinical findings and history. This Pap test was processed using an automated screening system. Technical cytopathology services provided by [facility], at [address] [place] [id number] (CLIA # [id number]/Francesca Garcia MD, Sociology Faculty Member.) 10/19/2024 3:57 PM EDT [facility] Console Pap Interpretation Reported 10/19/2024 3:57 PM T [facility] Brushing/Spatula Cervix uteri structure / Unknown 10/15/2024 10/16/2024 7:47 AM EDT us Allen Chandra MD LAB CYTOLOGY ORDERABLES Final Result Performing Organization Address City/State/[facility] Co de Phone Number [facility] [address] [place] [address], documented in this encounter Visit Diagnoses Diagnosis Encounter for gynecological examination (general) (routine) without abnormal findings documented in this encounter Care Teams Floral Merchandiser Relationship Specialty Start Date End Date Jose Chatman MD [address] [place] [address] PCP - General Internal Medicine 10/16/24 documented as of this encounter
== END 2025-06-09 10:11 | disposition home or self-care (01) ==
LOC: HO.HOS 09:38
PROVIDERS: PCP Internal Medicine; Visit Provider Orthopaedic Surgery
DX: M25.561 Pain in right knee (principal)
CPT/HCPCS: 99024

== ENCOUNTER → 2025-06-09 09:38 | Outpatient (BNVA) | payer MEDICARE, SELFPAY | PROVIDERS: PCP Internal Medicine; Visit Provider Orthopaedic Surgery | DX: M25.561 Pain in right knee (principal) | CPT/HCPCS: 99212 ==